=== PATIENT | male | born 1965 | race Caucasian/White ===

== ENCOUNTER 2017-02-22 12:02 | Emergency (ER) | payer OTHER ==
[~2017-02-22] VITALS: Ht 180.3 cm; Wt 90.7 kg
[~2017-02-22 12:02] MED LIST: NORCO 5-325 TA1 EACH PO; PREVACID30 MG PO
--- OUTSIDE RECORDS SUMMARY | 2017-02-22 12:09 | XMS | Clinical Summary ---
Demographics + + + | Address | [address] | | | [place] [address] | + + + | Home Phone | | + + + | Preferred Language | Unknown | + + + | Marital Status | Single | + + + | Scientology Affiliation | Unknown | + + + | Race | Unknown | + + + | Ethnic Group | Other Race | + + + Author + + + | Author | [facility] | + + + | Organization | [facility] | + + + | Address | Unknown | + + + | Phone | Unavailable | + + + Care Team Providers + +------+-------+ | Care Research Manager Name | Role | Phone | + +------+-------+ | [facility] [facility] | PP | tel | + +------+-------+ Source Comments EDILIA is fully live on both [facility] and [facility].Formerly [facility] Allergies No Known Allergies Current Medications No known medications Active Problems + + + | Problem | Noted Date | + + + | Malignant neoplasm of skin | | + + + + + | Overview: ICD10 | + + Social History + + + +--------+------+ | Tobacco Use | Types | Packs/Day | Years | Date | | | | | Used | | + + + +--------+------+ | Current Every Day | Cigarettes | 0.5 | | | | Smoker | | | | | + + + +--------+------+ + + + | Sex Assigned at | Date Recorded | | | | + + + | Not on file | | + + + Last Filed Vital Signs + +---------+ + | Vital Sign | Reading | Time Taken | + +---------+ + | Blood Pressure | 100/80 | 10/09/2008 8:27 AM PDT | + +---------+ + | Pulse | 57 | 10/09/2008 8:27 AM PDT | + +---------+ + | Temperature | - | - | + +---------+ + | Respiratory Rate | 18 | 10/09/2008 8:27 AM PDT | + +---------+ + | Oxygen Saturation | - | - | + +---------+ + | Inhaled Oxygen | - | - | | Concentration | | | + +---------+ + | Weight | - | - | + +---------+ + | Height | - | - | + +---------+ + | Body Mass Index | - | - | + +---------+ + Plan of Treatment + + + + + | Health Maintenance | Due Date | Last Done | Comments | + + + + + | INFLUENZA VACCINE | | | | | (FLU SHOT) | 7 | | | + + + + + Results Not on filefrom Last 3 Months"
[2017-02-22] MEDS ORDERED: OMEPRAZOLE20 M1 PO (12:17)
[2017-02-22] MEDS ORDERED: ONDANSETRON ODT8 MG PO (14:31)
--- NOTE | 2017-02-22 19:17 | EKG ---
[facility] [address] [facility] [place] [address] Signed Normal sinus rhythm Nonspecific T wave abnormality Abnormal ECG No previous ECGs available Confirmed by KALYANI GODDARD MD ([id number]) on 02/22/2017 7:17:47 PM Electronically Signed By: KALYANI GODDARD MD 02/22/171916 PATIENT NAME: ANDREIA ALMANZAR Electrocardiogram DATE OF : 63 PHYSICIAN: KALYANI GODDARD MD REPORT #: [id number] REPORT IS CONFIDENTIAL AND NOT TO BE RELEASED WITHOUT AUTHORIZATION
== END 2017-02-22 14:40 | disposition home or self-care (01) ==
LOC: ED 12:02
DX: R10.9 Unspecified abdominal pain (principal); R10.817 Generalized abdominal tenderness; K21.9 Gastro-esophageal reflux disease without esophagitis; F17.200 Nicotine dependence, unspecified, uncomplicated; Z79.899 Other long term (current) drug therapy
CPT/HCPCS: 80053; 81001; 82150; 83690; 84484; 85025; 93005; 93010; 96361; 96374; 96375; 96376; 99283; J1170; J2405; J7030

== ENCOUNTER 2017-07-18 12:01 | Emergency (ER) | payer OTHER ==
[~2017-07-18] VITALS: Ht 180.3 cm; Wt 90.7 kg
[~2017-07-18 12:01] MED LIST changes: +OMEPRAZOLE20 M1 PO; +ONDANSETRON ODT8 MG PO
[2017-07-18] MEDS ORDERED: NAPHCON-A EYE D15 ML OPTH (13:45)
== END 2017-07-18 13:56 | disposition home or self-care (01) ==
LOC: ED 12:01
DX: H10.13 Acute atopic conjunctivitis, bilateral (principal); F17.200 Nicotine dependence, unspecified, uncomplicated; K21.9 Gastro-esophageal reflux disease without esophagitis; Z79.899 Other long term (current) drug therapy
CPT/HCPCS: 99283

== ENCOUNTER 2018-04-07 13:31 | Emergency (ER) | payer OTHER ==
[~2018-04-07] VITALS: Ht 180.3 cm; Wt 90.7 kg
[~2018-04-07 13:31] MED LIST changes: +NAPHCON-A EYE D15 ML OPTH
== END 2018-04-07 16:00 | disposition home or self-care (01) ==
LOC: ED 13:31
DX: I87.8 Other specified disorders of veins (principal); K21.9 Gastro-esophageal reflux disease without esophagitis; F17.200 Nicotine dependence, unspecified, uncomplicated
CPT/HCPCS: 71045; 80053; 81001; 83880; 85025; 99283-25

== ENCOUNTER 2019-02-09 18:50 | Emergency (ER) | payer OTHER ==
[~2019-02-09] VITALS: Ht 180.3 cm; Wt 90.7 kg
--- OUTSIDE RECORDS SUMMARY | ~2019-02-09 | XMS | Encounter Summary ---
Demographics + + + | Address | [address] | | | [place] [address] | + + + | Home Phone | | + + + | Preferred Language | Unknown | + + + | Marital Status | Single | + + + | Mormonism Affiliation | Unknown | + + + | Race | Unknown | + + + | Ethnic Group | Unknown | + + + Author + + + | Author | [facility] | | | and [place] | + + + | Organization | [facility] | | | and [place] | + + + | Address | Unknown | + + + | Phone | Unavailable | + + + Support + + +---------+ + | Name | Relationship | Address | Phone | + + +---------+ + | Andrew [place] | ECON | Unknown | | + + +---------+ + Care Team Providers + +------+ + | Care Dance Professor Name | Role | Phone | + +------+ + PCP | Unavailable | + +------+ + Encounter Details +--------+ + + + + | Date | Type | Department | Care Team | Description | +--------+ + + + + | 09/10/ | Hospital | [facility] | [facility] | | | 2016 | Encounter | [facility] | [address] | | | | | [address] | [address] | | | | | [address] [place] | [place] [address] | | | | | [address] | [phone] | | | | | [phone] | | | +--------+ + + + + Social History + +-------+ +--------+------+ | Tobacco Use | Types | Packs/Day | Years | Date | | | | | Used | | + +-------+ +--------+------+ | Never Assessed | | | | | + +-------+ +--------+------+ + + + | Sex Assigned at | Date Recorded | | | | + + + | Not on file | | + + + + + + + | Job Start Date | Occupation | Industry | + + + + | Not on file | Not on file | Not on file | + + + + + + + + | Travel History | Travel Start | Travel End | + + + + + + | No recent travel history available. | + + documented as of this encounter Plan of Treatment Not on filedocumented as of this encounter Procedures + +--------+ + + + | Procedure Name | Priori | Date/Time | Associated Diagnosis | Comments | | | ty | | | | + +--------+ + + + | DRUGS OF ABUSE, | STAT | 09/11/2015 | | Results for this | | SCREEN, URINE | | 9:03 PM | | procedure are in the | | | | PDT | | results section. | + +--------+ + + + | BLOOD GAS, VENOUS | STAT | 09/11/2015 | | Results for this | | | | 7:27 PM | | procedure are in the | | | | PDT | | results section. | + +--------+ + + + | URINALYSIS WITH | STAT | 09/11/2015 | | Results for this | | MICROSCOPIC WITH | | 7:27 PM | | procedure are in the | | CULTURE IF INDICATED | | PDT | | results section. | + +--------+ + + + | CBC W/AUTO | STAT | 09/11/2015 | | Results for this | | DIFFERENTIAL | | 7:27 PM | | procedure are in the | | | | PDT | | results section. | + +--------+ + + + | TROPONIN I | STAT | 09/11/2015 | | Results for this | | | | 7:27 PM | | procedure are in the | | | | PDT | | results section. | + +--------+ + + + | LIPASE | STAT | 09/11/2015 | | Results for this | | | | 7:27 PM | | procedure are in the | | | | PDT | | results section. | + +--------+ + + + | COMPREHENSIVE | STAT | 09/11/2015 | | Results for this | | METABOLIC PANEL | | 7:27 PM | | procedure are in the | | | | PDT | | results section. | + +--------+ + + + | CT ABDOMEN PELVIS W | Routin | 09/11/2015 | | Results for this | | CONTRAST | e | 6:59 PM | | procedure are in the | | | | PDT | | results section. | + +--------+ + + + documented in this encounter Results Drugs of Abuse, Screen, Urine (09/11/2015 9:03 PM PDT) + +-------+ + + + | Component | Value | Ref Range | Performed | Pathologist | | | | | At | Signature | + +-------+ + + + | THC RESULT | POS | NEG ng/mL | EXTERNAL | | | | | | LAB | | + +-------+ + + + | Phencyclidi | NEG | NEG ng/mL | EXTERNAL | | | ne | | | LAB | | + +-------+ + + + | Cocaine | NEG | NEG ng/mL | EXTERNAL | | | | | | LAB | | + +-------+ + + + | Methampheta | POS | NEG ng/mL | EXTERNAL | | | mine | | | LAB | | + +-------+ + + + | Opiates | NEG | NEG ng/mL | EXTERNAL | | | | | | LAB | | + +-------+ + + + | Amphetamine | POS | NEG ng/mL | EXTERNAL | | | s | | | LAB | | + +-------+ + + + | Benzodiazep | NEG | NEG ng/mL | EXTERNAL | | | penny | | | LAB | | | Screen, | | | | | | Urine | | | | | + +-------+ + + + | TCA Scrn | NEG | NEG ng/mL | EXTERNAL | | | | | | LAB | | + +-------+ + + + | Methadone | NEG | NEG ng/mL | EXTERNAL | | | Screen, | | | LAB | | | Urine | | | | | + +-------+ + + + | Barbiturate | NEG | NEG ng/mL | EXTERNAL | | | s | | | LAB | | + +-------+ + + + | Oxycodone | NEG | NEG ng/mL | EXTERNAL | | | | | | LAB | | + +-------+ + + + | Propoxyphen | NEG | NEG ng/mL | EXTERNAL | | | e | | | LAB | | + +-------+ + + + | Buprenorphi | NEG | NEG ng/mL | EXTERNAL | | | ne | | | LAB | | + +-------+ + + + + + | Specimen | + + | | + + + +---------+ + + | Performing | Address | City/State/Zipcode | Phone Number | | Organization | | | | + +---------+ + + | EXTERNAL LAB | | | | + +---------+ + + Urinalysis with Microscopic with Culture if Indicated (09/11/2015 7:27 PM PDT) + + + + + + | Component | Value | Ref Range | Performed | Pathologist | | | | | At | Signature | + + + + + + | Source | Clean Catch / VOID | | EXTERNAL | | | | | | LAB | | + + + + + + | Clarity | CLEAR | CLEAR | EXTERNAL | | | | | | LAB | | + + + + + + | Color | YELLOW | YELLOW | EXTERNAL | | | | | | LAB | | + + + + + + | Specific | 1.015 | 1.005 - 1.030 | EXTERNAL | | | [place], | | | LAB | | | Urine | | | | | + + + + + + | pH, Urine | 8 | 5.0 - 7.0 pH | EXTERNAL | | | | | | LAB | | + + + + + + | Leukocyte | NEGATIVE | NEGATIVE /uL | EXTERNAL | | | Esterase, | | | LAB | | | Urine | | | | | + + + + + + | Nitrite, | NEGATIVE | NEGATIVE | EXTERNAL | | | Urine | | | LAB | | + + + + + + | Protein, | NEGATIVE | NEGATIVE mg/dL | EXTERNAL | | | Urine | | | LAB | | + + + + + + | Glucose, | NORMAL | NORMAL mg/dL | EXTERNAL | | | Urine | | | LAB | | + + + + + + | Reducing | NOT REQUIRED | NEGATIVE | EXTERNAL | | | Substance, | | | LAB | | | UA, POC | | | | | + + + + + + | Ketones, | 150 | NEGATIVE mg/dL | EXTERNAL | | | Urine | | | LAB | | + + + + + + | Urobilinoge | NORMAL | NORMAL mg/dL | EXTERNAL | | | n, Urine | | | LAB | | + + + + + + | Bilirubin, | NEGATIVE | NEGATIVE mg/dL | EXTERNAL | | | Urine | | | LAB | | + + + + + + | Blood, | NEGATIVE | NEGATIVE /uL | EXTERNAL | | | Urine | | | LAB | | + + + + + + | WBC UA | 0-2 | </= 5 /HPF | EXTERNAL | | | | | | LAB | | + + + + + + | RBC COUNT | NONE SEEN | </= 5 PER HPF | EXTERNAL | | | | | | LAB | | + + + + + + | Bacteria, | NONE SEEN | NONE SEEN /HPF | EXTERNAL | | | UA | | | LAB | | + + + + + + | Culture | NO | | EXTERNAL | | | Indicated | | | LAB | | + + + + + + | SQUAMOUS | RARE | /LPF | EXTERNAL | | | EPITHELIAL | | | LAB | | | UA | | | | | + + + + + + | MUCUS UA | FEW | NONE SEEN /HPF | EXTERNAL | | | | | | LAB | | + + + + + + + + | Specimen | + + | | + + + +---------+ + + | Performing | Address | City/State/Zipcode | Phone Number | | Organization | | | | + +---------+ + + | EXTERNAL LAB | | | | + +---------+ + + Troponin I (09/11/2015 7:27 PM PDT) + +-------+ + + + | Component | Value | Ref Range | Performed | Pathologist | | | | | At | Signature | + +-------+ + + + | Troponin I | 0.01 | <=0.10 ng/mL | EXTERNAL | | | | | | LAB | | + +-------+ + + + + + | Specimen | + + | | + + + +---------+ + + | Performing | Address | City/State/Zipcode | Phone Number | | Organization | | | | + +---------+ + + | EXTERNAL LAB | | | | + +---------+ + + Lipase (09/11/2015 7:27 PM PDT) + +-------+ + + + | Component | Value | Ref Range | Performed | Pathologist | | | | | At | Signature | + +-------+ + + + | Lipase | 108 | 73 - 393 U/L | EXTERNAL | | | | | | LAB | | + +-------+ + + + + + | Specimen | + + | | + + + +---------+ + + | Performing | Address | City/State/Zipcode | Phone Number | | Organization | | | | + +---------+ + + | EXTERNAL LAB | | | | + +---------+ + + Comprehensive Metabolic Panel (09/11/2015 7:27 PM PDT) + +-------+ + + + | Component | Value | Ref Range | Performed | Pathologist | | | | | At | Signature | + +-------+ + + + | Sodium | 137 | 132 - 143 | EXTERNAL | | | | | mmol/L | LAB | | + +-------+ + + + | Potassium | 3.4 | 3.3 - 4.9 | EXTERNAL | | | | | mmol/L | LAB | | + +-------+ + + + | Cl | 102 | 95 - 108 mmol/L | EXTERNAL | | | | | | LAB | | + +-------+ + + + | CO2 | 26 | 23 - 34 mmol/L | EXTERNAL | | | | | | LAB | | + +-------+ + + + | Anion Gap | 9 | 7 - 16 | EXTERNAL | | | | | | LAB | | + +-------+ + + + | Calcium | 8.8 | 8.3 - 10.0 | EXTERNAL | | | | | mg/dL | LAB | | + +-------+ + + + | Glucose | 107 | 70 - 110 mg/dL | EXTERNAL | | | | | | LAB | | + +-------+ + + + | BUN, Bld | 14 | 5 - 26 mg/dL | EXTERNAL | | | | | | LAB | | + +-------+ + + + | Creatinine | 1 | 0.70 - 1.40 | EXTERNAL | | | | | mg/dL | LAB | | + +-------+ + + + | BUN/Creatin | 14 | 7.0 - 24.0 | EXTERNAL | | | ine Ratio | | RATIO | LAB | | + +-------+ + + + | GFR | 60 | >=60 | EXTERNAL | | | ESTIMATE | | mL/min/1.73m2 | LAB | | + +-------+ + + + | Bilirubin, | 0.8 | <=1.2 mg/dL | EXTERNAL | | | Total | | | LAB | | + +-------+ + + + | Protein, | 7.4 | 6.6 - 8.5 g/dL | EXTERNAL | | | Total | | | LAB | | + +-------+ + + + | Albumin | 3.8 | 3.0 - 4.5 g/dL | EXTERNAL | | | | | | LAB | | + +-------+ + + + | Alkaline | 79 | 46 - 116 U/L | EXTERNAL | | | Phosphatase | | | LAB | | + +-------+ + + + | ALT, | 41 | 16 - 63 U/L | EXTERNAL | | | External | | | LAB | | + +-------+ + + + | AST, | 41 | <=38 U/L | EXTERNAL | | | External | | | LAB | | + +-------+ + + + + + | Specimen | + + | | + + + +---------+ + + | Performing | Address | City/State/Zipcode | Phone Number | | Organization | | | | + +---------+ + + | EXTERNAL LAB | | | | + +---------+ + + CBC w/ Auto Differential (09/11/2015 7:27 PM PDT) + +-------+ + + + | Component | Value | Ref Range | Performed | Pathologist | | | | | At | Signature | + +-------+ + + + | WBC | 11 | 4.6 - 10.5 | EXTERNAL | | | | | 1000/mm3 | LAB | | + +-------+ + + + | RBC | 4.49 | 4.36 - 5.83 | EXTERNAL | | | | | mil/mm3 | LAB | | + +-------+ + + + | HGB, | 14.4 | 13.1 - 17.4 | EXTERNAL | | | External | | g/dL | LAB | | + +-------+ + + + | HCT, | 41.7 | 39.0 - 51.9 % | EXTERNAL | | | External | | | LAB | | + +-------+ + + + | MCV | 93 | 82 - 96 fl | EXTERNAL | | | | | | LAB | | + +-------+ + + + | MCH | 32.1 | 27.7 - 32.3 pg | EXTERNAL | | | | | | LAB | | + +-------+ + + + | MCHC | 34.5 | 32.0 - 36.9 | EXTERNAL | | | | | g/dL | LAB | | + +-------+ + + + | RDW-CV | 13.6 | <=17.0 % | EXTERNAL | | | | | | LAB | | + +-------+ + + + | RDW-SD | 45.1 | 34.0 - 57.0 fL | EXTERNAL | | | | | | LAB | | + +-------+ + + + | Platelet | 384 | 150 - 450 | EXTERNAL | | | Count | | 1000/mm3 | LAB | | | Plasma | | | | | + +-------+ + + + | MPV | 9.3 | 9.4 - 12.4 FL | EXTERNAL | | | | | | LAB | | + +-------+ + + + | % Segmented | 75.5 | 42.0 - 76.0 % | EXTERNAL | | | | | | LAB | | | Neutrophils | | | | | + +-------+ + + + | % | 15.1 | 20.0 - 40.0 % | EXTERNAL | | | Lymphocytes | | | LAB | | + +-------+ + + + | % Monocytes | 8.2 | 3.0 - 13.0 % | EXTERNAL | | | | | | LAB | | + +-------+ + + + | % | 1 | 0.0 - 7.0 % | EXTERNAL | | | Eosinophils | | | LAB | | + +-------+ + + + | % Basophils | 0.2 | 0.0 - 2.0 % | EXTERNAL | | | | | | LAB | | + +-------+ + + + | Absolute | 8.31 | 2.80 - 7.70 | EXTERNAL | | | Neutrophils | | 1000/mm3 | LAB | | + +-------+ + + + | Absolute | 1.66 | 1.20 - 3.30 | EXTERNAL | | | Lymphocytes | | 1000/mm3 | LAB | | + +-------+ + + + | Absolute | 0.9 | 0.00 - 0.80 | EXTERNAL | | | Monocytes | | 1000/mm3 | LAB | | + +-------+ + + + | Absolute | 0.11 | 0.00 - 0.70 | EXTERNAL | | | Eosinophils | | 1000/mm3 | LAB | | + +-------+ + + + | Absolute | 0.02 | 0.00 - 0.20 | EXTERNAL | | | Basophils | | 1000/mm3 | LAB | | + +-------+ + + + | SLIDE | NO | | EXTERNAL | | | REVIEWED | | | LAB | | + +-------+ + + + + + | Specimen | + + | | + + + +---------+ + + | Performing | Address | City/State/Zipcode | Phone Number | | Organization | | | | + +---------+ + + | EXTERNAL LAB | | | | + +---------+ + + Blood Gas, Venous (09/11/2015 7:27 PM PDT) + +-------+ + + + | Component | Value | Ref Range | Performed | Pathologist | | | | | At | Signature | + +-------+ + + + | pH | 7.52 | 7.35 - 7.45 PH | EXTERNAL | | | | | UNITS | LAB | | + +-------+ + + + | PCO2, | 33 | 41 - 54 mmHG | EXTERNAL | | | Venous, POC | | | LAB | | + +-------+ + + + | HCO3 | 27 | 17 - 28 mmol/L | EXTERNAL | | | | | | LAB | | + +-------+ + + + + + | Specimen | + + | | + + + +---------+ + + | Performing | Address | City/State/Zipcode | Phone Number | | Organization | | | | + +---------+ + + | EXTERNAL LAB | | | | + +---------+ + + CT Abdomen Pelvis w Contrast (09/11/2015 6:59 PM PDT) + + | Specimen | + + | | + + + + + | Narrative | Performed At | + + + | ORIGINAL CT ABDOMEN AND PELVIS WITH CONTRAST: | | | CLINICAL STATEMENT: Severe pain with nausea and vomiting. No | | | comparison. TECHNIQUE: Axial images are obtained through the | | | abdomen and pelvis following uneventful administration of intravenous | | | contrast. DLP is 813.57 mGy-cm. REPORT: Small volume | | | intraabdominal free air is present. Ascites is demonstrated as well. | | | Findings suspicious for defect in the pylorus region of the stomach | | | is noted. Hyperenhancement at the mucosal surface pylorus region as | | | well as proximal duodenum is evident. The liver, gallbladder, | | | adrenal glands, spleen, and right kidney appear within normal limits. | | | At the left kidney hypoattenuating 4 mm lesion is noted at the upper | | | pole, too small to characterize but most typically associated with | | | cyst. Similar finding is noted at the mid-cortex medially on image | | | 119. Atherosclerosis abdominal aorta is present without aneurysm. | | | The pancreas appears within normal limits. No dilated bowel | | | loops are seen. The visualized bony structures demonstrate disk | | | degenerative changes at several lumbar levels with narrowing and | | | endplate spurring. Findings are most prominent at L5-S1. No lytic | | | or blastic bone lesions are seen. The lung bases demonstrate no | | | focal infiltrate. Heart size is normal. IMPRESSION: Free air, | | | free fluid within abdomen. Suspicious finding for gastric | | | perforation noted near the pylorus. The study is preliminarily | | | evaluated by an overnight reading service. JOB #: | | | [id number] Read By: JENARO HINES MD Released By: JENARO HINES MD Date: 09/12/2015 18:00 | | + + + + + | Procedure Note | + + | Rojelio, Rad Results In - 01/04/2017 11:[address] PM [address] ABDOMEN AND PELVIS | | WITH CONTRAST: CLINICAL STATEMENT:Severe pain with nausea and vomiting. No comparison. | | TECHNIQUE:Axial images are obtained through the abdomen and pelvis following uneventful | | administration of intravenous contrast. DLP is 813.57 mGy-cm. REPORT:Small volume | | intraabdominal free air is present. Ascites is demonstrated as well. Findings | | suspicious for defect in the pylorus region of the stomach is noted. Hyperenhancement | | at the mucosal surface pylorus region as well as proximal duodenum is evident. The | | liver, gallbladder, adrenal glands, spleen, and right kidney appear within normal | | limits. At the left kidney hypoattenuating 4 mm lesion is noted at the upper pole, too | | small to characterize but most typically associated with cyst. Similar finding is noted | | at the mid-cortex medially on image 119. Atherosclerosis abdominal aorta is present | | without aneurysm. The pancreas appears within normal limits. No dilated bowel loops are | | seen. The visualized bony structures demonstrate disk degenerative changes at several | | lumbar levels with narrowing and endplate spurring. Findings are most prominent at | | L5-S1. No lytic or blastic bone lesions are seen. The lung bases demonstrate no focal | | infiltrate. Heart size is normal. IMPRESSION:Free air, free fluid within abdomen. | | Suspicious finding for gastric perforation noted near the pylorus. The study is | | preliminarily evaluated by an overnight reading service. JOB #: [id number] | | Read By: JENARO HINES MD Released By: JENARO HINES, MDDate: 09/12/2015 18:00 | |evident. | | | |The liver, gallbladder, adrenal glands, spleen, and right kidney appear within normal limit s. At the left kidney hypoattenuating 4 mm lesion is noted at the upper pole, too small to characterize but most typically | |associated with cyst. Similar finding | |is noted at the mid-cortex medially on image 119. | | | |Atherosclerosis abdominal aorta is present without aneurysm. | | | |The pancreas appears within normal limits. | | | |No dilated bowel loops are seen. The visualized bony structures demonstrate disk degenerat abraham changes at several lumbar levels with narrowing and endplate spurring. Findings are mos t prominent at L5-S1. No lytic or blastic bone lesions are seen. | | | |The lung bases demonstrate no focal infiltrate. Heart size is normal. | | | |IMPRESSION: | |Free air, free fluid within abdomen. Suspicious finding for gastric perforation noted near the pylorus. The study is preliminarily evaluated by an overnight reading service. | | | | | |JOB #: [id number] | | | |Read By: JENARO HINES MD | | | |Released By: JENARO HINES MD | |Date: 09/12/2015 18:00 | | | | | + + documented in this encounter Visit Diagnoses Not on filedocumented in this encounter"
--- OUTSIDE RECORDS SUMMARY | ~2019-02-09 | XMS | Clinical Summary ---
Demographics + + + | Address | [address] | | | [place] [address] | + + + | Home Phone | | + + + | Preferred Language | Unknown | + + + | Marital Status | Single | + + + | Nondenominational Affiliation | Unknown | + + + | Race | Unknown | + + + | Ethnic Group | Unknown | + + + Author + + + | Author | [facility] | | | and [place] | + + + | Organization | [facility] | | | and [place] [...] Team Providers + +------+ + | Care Crew Leader Name | Role | Phone | + +------+ + | Elbert Ramires DO | PCP | | + +------+ + Allergies Not on File Medications Not on file Active Problems Not on file Social History + +-------+ +--------+------+ | Tobacco [...] recent travel history available. | + + Last Filed Vital Signs + + + + + | Vital Sign | Reading | Time Taken | Comments | + + + + + | Blood Pressure | 118/56 | 01/01/2016 1:51 PM | | | | | PDT | | + + + + + | Pulse | 76 | 01/01/2016 1:51 PM | | | | | PDT | | + + + + + | Temperature | - | - | | + + + + + | Respiratory Rate | 16 | 01/01/2016 1:51 PM | | | | | PDT | | + + + + + | Oxygen Saturation | 97% | 01/01/2016 1:51 PM | | | | | PDT | | + + + + + | Inhaled Oxygen | - | - | | | Concentration | | | | + + + + + | Weight | 83.1 kg (183 lb 3.3 | 01/01/2016 1:51 PM | | | | oz) | PDT | | + + + + + | Height | 180.3 cm (5' 10.98") | 01/01/2016 1:51 PM | | | | | PDT | | + + + + + | Body Mass Index | 25.57 | 01/01/2016 1:51 PM | | | | | PDT | | + + + + + Plan of Treatment + + + + + | Health Maintenance | Due Date | Last Done | Comments | + + + + + | Primary Care | | | | | Outreach (Low Risk) | 4 | | | + + + + + | Vaccine: | | | | | Dtap/Tdap/Td (1 - | 3 | | | | Tdap) | | | | + + + + + | Vaccine: Zoster (1 | | | | | of 2) | 4 | | | + + + + + | Vaccine: Influenza | | | | | (#1) | 9 | | | + + + + + Results Not on filefrom Last 3 Months
--- OUTSIDE RECORDS SUMMARY | ~2019-02-09 | XMS | Encounter Summary ---
Demographics + + + | Address | [address] | | | [place] [address] | + + + | Home Phone | | + + + | Preferred Language | Unknown | + + + | Marital Status | Single | + + + | Jewish Affiliation | Unknown | + + + | Race | Unknown | + + + | Ethnic Group | Unknown | + + + Author + + + | Author | [facility] | | | and [place] | + + + | Organization | [facility] | | | and [place] [...] Team Providers + +------+ + | Care Editor Continuity And Script Name | Role | Phone | + +------+ + PCP | Unavailable | + +------+ + Encounter Details +--------+ + + + + | Date | Type | Department | Care Team | Description | +--------+ + + + + | 12/31/ | [facility] | [facility] | [place], [place] | | | 2016 | Encounter | [facility] | [address] | | | | | [facility] [address] | [address] [facility], | | | | | [address] [facility], | [place] [address] | | | | | [place] [address] | [phone] | | | | | [phone] | | | +--------+ + + + [...] Not on filedocumented as of this encounter Visit Diagnoses Not on filedocumented in this encounter"
--- OUTSIDE RECORDS SUMMARY | ~2019-02-09 | XMS | Encounter Summary ---
Demographics + + + | Address | [address] | | | [place] [address] | + + + | Home Phone | | + + + | Preferred Language | Unknown | + + + | Marital Status | Single | + + + | Roman Catholic Affiliation | Unknown | + + + | Race | Unknown | + + + | Ethnic Group | Unknown | + + + Author + + + | Author | [facility] | | | and [place] | + + + | Organization | [facility] | | | and [place] | [...] Team Providers + +------+ + | Care Food Processing Chemist Name | Role | Phone | + +------+ + PCP | Unavailable | + +------+ + Encounter Details +--------+ + + + + | Date | Type | Department | Care Team | Description | +--------+ + + + + | 07/28/ | Hospital | [facility] | Tyshawn Acharya | | | 2008 | Encounter | HOSPITAL BUSINESS | MD [address] | | | | | OFFICE [address] | [address] | | | | | [place] | [place] [address] | | | | | [address] | [phone] | | | | | [phone] | | | +--------+ + + + [...]
--- OUTSIDE RECORDS SUMMARY | ~2019-02-09 | XMS | Clinical Summary ---
Demographics + + + | Address | [address] | | | [place] [address] | + + + | Home Phone | | + + + | Preferred Language | Unknown | + + + | Marital Status | Single | + + + | Adventist Affiliation | Unknown | + + + | Race | Unknown | + + + | Ethnic Group | Unknown | + + + Author + + + | Author | [facility] | | | and [place] | + + + | Organization | [facility] | | | and [place] [...] Team Providers + +------+ + | Care Bed Laborer Name | Role | Phone | + [...]
--- OUTSIDE RECORDS SUMMARY | ~2019-02-09 | XMS | Encounter Summary ---
Demographics + + + | Address | [address] | | | [place] [address] | + + + | Home Phone | | + + + | Preferred Language | Unknown | + + + | Marital Status | Single | + + + | Yarsani Affiliation | Unknown | + + + | Race | Unknown | + + + | Ethnic Group | Unknown | + + + Author + + + | Author | [facility] | | | and [place] | + + + | Organization | [facility] | | | and [place] [...] Team Providers + +------+ + | Care Customer Success Director Name | Role | Phone | + +------+ + PCP | Unavailable | + +------+ + Encounter Details +--------+ + + + + | Date | Type | Department | Care Team | Description | +--------+ + + + + | 09/10/ | Hospital | [facility] | [place], | | | 2016 | Encounter | HOSPITAL MED SURG | Nomi Hagan, | | | | | [address] | [address] | | | | | [place] | [place] | | | | | [address] | [address] | | | | | [phone] | [phone] | | | | | | | | +--------+ + + + [...] + + documented as of this encounter Discharge Summaries Nomi Win MD - 09/11/2015 10:06 PM PDT DISCHARGE SUMMARY DATE OF ADMISSION: 09/11/2015. DATE OF DISCHARGE: 09/17/2015. HISTORY OF PRESENT ILLNESS: This is a 50-year-old male who began having epigastric discomfort that suddenly became more severe on the day of admission. He was admitted with presumed perforated peptic ulcer. He was taken to the operating room where a fairly straightforward anterior gastric perforation was noted and patched by omentopexy. Postoperative course was unremark able. We kept an NG tube for about 2-3 days and then started on a diet and advanced. His h istory was significant for active methamphetamine use, MARIJUANA use and tobacco use. Counseling was given by myself regarding these issues and an arrangement was made for him to stay with his parents during his postoperative recovery at home. DISCHARGE PLAN: Follow up with me in 1-2 weeks. He is given NORCO script for pain. Started on OMEPRAZOLE, BIAXIN and AMOXICILLIN for H. pylori positivity. He is to avoid any heavy lifting. DISCHARGE DIAGNOSES: 1. Perforated gastric ulcer. 2. H. pylori positive. 3. Methamphetamine abuse. 4. Tobacco abuse. 5. MARIJUANA abuse. CC: Carlitos Delvalle MD [facility] Signed and Approved by: NOMI WIN MD 09/21/2015 09:51:00 documented in this encounter Plan of Treatment Not on filedocumented as of this encounter Procedures + +--------+ + + + | Procedure Name | Priori | Date/Time | Associated Diagnosis | Comments | | | ty | | | | + +--------+ + + + | HELICOBACTER PYLORI | Routin | 09/11/2015 | | Results for this | | BIOPSY | e | 11:10 PM | | procedure are in the | | | | PDT | | results section. | + +--------+ + + + | CBC W/AUTO | Routin | 09/11/2015 | | Results for this | | DIFFERENTIAL | e | 5:00 AM | | procedure are in the | | | | PDT | | results section. | + +--------+ + + + | BASIC METABOLIC | Routin | 09/11/2015 | | Results for this | | PANEL | e | 5:00 AM | | procedure are in the | | | | PDT | | results section. | + +--------+ + + + documented in this encounter Results Helicobactor pylori Biopsy (09/11/2015 11:10 PM PDT) + + + + + + | Component | Value | Ref Range | Performed | Pathologist | | | | | At | Signature | + + + + + + | CLOTEST | POSITIVE | NEGATIVE | EXTERNAL | | | | | | LAB | | + + + + + + | Internal QC | POSITIVE | POSITIVE | EXTERNAL | | | | | [...] + + CBC w/ Auto Differential (09/11/2015 5:00 AM PDT) + +-------+ + + + | Component | Value | Ref Range | Performed | Pathologist | | | | | At | Signature | + +-------+ + + + | WBC | 8.3 | 4.6 - 10.5 | EXTERNAL | | | | | 1000/mm3 | LAB | | + +-------+ + + + | RBC | 4.06 | 4.36 - 5.83 | EXTERNAL | | | | | mil/mm3 | LAB | | + +-------+ + + + | HGB, | 12.6 | 13.1 - 17.4 | EXTERNAL | | | External | | g/dL | LAB | | + +-------+ + + + | HCT, | 37.6 | 39.0 - 51.9 % | EXTERNAL | | | External | | | LAB | | + +-------+ + + + | MCV | 93 | 82 - 96 fl | EXTERNAL | | | | | | LAB | | + +-------+ + + + | MCH | 31 | 27.7 - 32.3 pg | EXTERNAL | | | | | | LAB | | + +-------+ + + + | MCHC | 33.5 | 32.0 - 36.9 | EXTERNAL | | | | | g/dL | LAB | | + +-------+ + + + | RDW-CV | 13.4 | <=17.0 % | EXTERNAL | | | | | | LAB | | + +-------+ + + + | RDW-SD | 44.4 | 34.0 - 57.0 fL | EXTERNAL | | | | | | LAB | | + +-------+ + + + | Platelet | 390 | 150 - 450 | EXTERNAL | | | Count | | 1000/mm3 | LAB | | | Plasma | | | | | + +-------+ + + + | MPV | 9.9 | 9.4 - 12.4 FL | EXTERNAL | | | | | | LAB | | + +-------+ + + + | % Segmented | 63.6 | 42.0 - 76.0 % | EXTERNAL | | | | | | LAB | | | Neutrophils | | | | | + +-------+ + + + | % | 17 | 20.0 - 40.0 % | EXTERNAL | | | Lymphocytes | | | LAB | | + +-------+ + + + | % Monocytes | 12.4 | 3.0 - 13.0 % | EXTERNAL | | | | | | LAB | | + +-------+ + + + | % | 6.8 | 0.0 - 7.0 % | EXTERNAL | | | Eosinophils | | | LAB | | + +-------+ + + + | % Basophils | 0.2 | 0.0 - 2.0 % | EXTERNAL | | | | | | LAB | | + +-------+ + + + | Absolute | 5.26 | 2.80 - 7.70 | EXTERNAL | | | Neutrophils | | 1000/mm3 | LAB | | + +-------+ + + + | Absolute | 1.41 | 1.20 - 3.30 | EXTERNAL | | | Lymphocytes | | 1000/mm3 | LAB | | + +-------+ + + + | Absolute | 1.03 | 0.00 - 0.80 | EXTERNAL | | | Monocytes | | 1000/mm3 | LAB | | + +-------+ + + + | Absolute | 0.56 | 0.00 - 0.70 | EXTERNAL | [...] | | | + +---------+ + + Basic Metabolic Panel (09/11/2015 5:00 AM PDT) + +-------+ + + + | Component | Value | Ref Range | Performed | Pathologist | | | | | At | Signature | + +-------+ + + + | Sodium | 140 | 132 - 143 | EXTERNAL | | | | | mmol/L | LAB | | + +-------+ + + + | Potassium | 3.3 | 3.3 - 4.9 | EXTERNAL | | | | | mmol/L | LAB | | + +-------+ + + + | Cl | 108 | 95 - 108 mmol/L | EXTERNAL | | | | | | LAB | | + +-------+ + + + | CO2 | 28 | 23 - 34 mmol/L | EXTERNAL | | | | | | LAB | | + +-------+ + + + | Anion Gap | 4 | 7 - 16 | EXTERNAL | | | | | | LAB | | + +-------+ + + + | Calcium | 7.6 | 8.3 - 10.0 | EXTERNAL | | | | | mg/dL | LAB | | + +-------+ + + + | Glucose | 104 | 70 - 110 mg/dL | EXTERNAL | | | | | | LAB | | + +-------+ + + + | BUN, Bld | 14 | 5 - 26 mg/dL | EXTERNAL | | | | | | LAB | | + +-------+ + + + | Creatinine | 0.85 | 0.70 - 1.40 | EXTERNAL | | | | | mg/dL | LAB | | + +-------+ + + + | BUN/Creatin | 16.5 | 7.0 - 24.0 | EXTERNAL | [...] | | | + +---------+ + + documented in this encounter Visit Diagnoses Not on filedocumented in this encounter"
--- OUTSIDE RECORDS SUMMARY | ~2019-02-09 | XMS | Encounter Summary ---
Demographics + + + | Address | [address] | | | [place] [address] | + + + | Home Phone | | + + + | Preferred Language | Unknown | + + + | Marital Status | Single | + + + | Mandaeism Affiliation | Unknown | + + + | Race | Unknown | + + + | Ethnic Group | Unknown | + + + Author + + + | Author | [facility] | | | and [place] | + + + | Organization | [facility] | | | and [...] Team Providers + +------+ + | Care Stabilizing Machine Operator Name | Role | Phone | + +------+ + PCP | Unavailable | + +------+ + Encounter Details +--------+ + + + + | Date | Type | Department | Care Team | Description | +--------+ + + + + | 12/31/ | [facility] | [facility] | [place], [place] | | | 2016 | Encounter | [facility] | [address] | | | | | [facility] [address] | [facility], | | | | | [facility], | [place] [address] | | | | | [place] [address] | [phone] | | | | | [phone] | | | +--------+ + + + [...]
--- OUTSIDE RECORDS SUMMARY | ~2019-02-09 | XMS | Encounter Summary ---
Demographics + + + | Address | [address] | | | [place] [address] | + + + | Home Phone | | + + + | Preferred Language | Unknown | + + + | Marital Status | Single | + + + | Cheondoism Affiliation | Unknown | + + + | Race | Unknown | + + + | Ethnic Group | Unknown | + + + Author + + + | Author | [facility] | | | and [place] | + + + | Organization | [facility] | | | and [place] [...] Team Providers + +------+ + | Care Campus Recruiting Intern Name | Role | Phone | + [...] | [address] [place] [place] | [place] [address] | | | | | [address] | [phone] | | | | | [phone] | | | +--------+ + + + [...]
--- OUTSIDE RECORDS SUMMARY | ~2019-02-09 | XMS | Encounter Summary ---
Demographics + + + | Address | [address] | | | [place] [address] | + + + | Home Phone | | + + + | Preferred Language | Unknown | + + + | Marital Status | Single | + + + | Baptist Affiliation | Unknown | + + + | Race | Unknown | + + + | Ethnic Group | Unknown | + + + Author + + + | Author | [facility] | | | and [place] | + + + | Organization | [facility] | | | and [place] [...] Team Providers + +------+ + | Care Pin Pusher Name | Role | Phone | + [...] | [address] [place] [place] | [place] [address] | | | | | [address] | [phone] | | | | | [phone] | | | +--------+ + + + [...] - 1.030 | EXTERNAL | | | [facility], | | | LAB | | | [...] reading service. JOB #: | | | [id number] Read By: JENARO HINES MD Released By: [...] by an overnight reading service. JOB #: [id number] | | Read By: JENARO HINES MD [...] | | | | | |JOB #: [id number] | | | |Read By: JENARO HINSE MD | | | |Released By: JENARO HINES MD | |Date: 09/12/2015 18:00 | | | | | + + documented in this encounter Visit Diagnoses Not on filedocumented in this encounter"
--- OUTSIDE RECORDS SUMMARY | ~2019-02-09 | XMS | Encounter Summary ---
Demographics + + + | Address | [address] | | | [place] [address] | + + + | Home Phone | | + + + | Preferred Language | Unknown | + + + | Marital Status | Single | + + + | Bahai Affiliation | Unknown | + + + | Race | Unknown | + + + | Ethnic Group | Unknown | + + + Author + + + | Author | [facility] | | | and [place] | + + + | Organization | [facility] | | | and [...] Team Providers + +------+ + | Care Outpatient Program Coordinator Name | Role | Phone | + +------+ + PCP | Unavailable | + +------+ + Encounter Details +--------+ + + + + | Date | Type | Department | Care Team | Description | +--------+ + + + + | 09/22/ | [facility] | [place], | | | 2016 | Encounter | HOSPITAL GENERAL | Ramakrishna Hagan, | | | | | SURGERY [address] | [address] | | | | | [address], | [place], [place] | | | | | [place] [address] | [address] | | | | | [phone] | [phone] | | | | | | | [...]
--- OUTSIDE RECORDS SUMMARY | ~2019-02-09 | XMS | Encounter Summary ---
Demographics + + + | Address | [address] | | | [place] [address] | + + + | Home Phone | | + + + | Preferred Language | Unknown | + + + | Marital Status | Single | + + + | Jehovah'S Witness Affiliation | Unknown | + + + | Race | Unknown | + + + | Ethnic Group | Unknown | + + + Author + + + | Author | [facility] | | | and [place] | + + + | Organization | [facility] | | | and [...] Team Providers + +------+ + | Care Sheet Metal Worker Name | Role | Phone | + +------+ + PCP | Unavailable | + +------+ + Encounter Details +--------+ + + + + | Date | Type | Department | Care Team | Description | +--------+ + + + + | 09/10/ | Hospital | [facility] | [place], | | | 2016 | Encounter | HOSPITAL MED SURG | Nomi aHgan, | | | | | [address] | [address] | | | | | [place] | [place] | | | | | [address] | [address] | | | | | [phone] | [phone] | | | | | | | [...] 5. MARIJUANA abuse. CC: Carlitos Delvalle MD [facility] Signed and Approved by: NOMI WIN MD [...]
--- OUTSIDE RECORDS SUMMARY | ~2019-02-09 | XMS | Encounter Summary ---
Demographics + + + | Address | [address] | | | [place] [address] | + + + | Home Phone | | + + + | Preferred Language | Unknown | + + + | Marital Status | Single | + + + | Oriental Orthodox Affiliation | Unknown | + + + | Race | Unknown | + + + | Ethnic Group | Unknown | + + + Author + + + | Author | [facility] | | | and [place] | + + + | Organization | [facility] | | | and [place] [...] Team Providers + +------+ + | Care Lump Machine Operator Name | Role | Phone | + +------+ + PCP | Unavailable | + +------+ + Encounter Details +--------+ + + + + | Date | Type | Department | Care Team | Description | +--------+ + + + + | 09/22/ | [facility] | [place], | | | 2016 | Encounter | HOSPITAL GENERAL | Ramakrishna Hagan, | | | | | SURGERY [address] | [address] | | | | | [address], | [place], [place] | | | | | [place] [address] | [address] | | | | | [phone] | [phone] | | | | | | | [...]
[2019-02-09] MEDS ORDERED: NORCO 5-325 TA1 EACH PO (21:23)
[2019-02-09] MEDS ORDERED: CLINDAMYCIN HC300 MG PO (21:23)
== END 2019-02-09 21:33 | disposition home or self-care (01) ==
LOC: ED 18:50
DX: K04.7 Periapical abscess without sinus (principal); F17.200 Nicotine dependence, unspecified, uncomplicated
CPT/HCPCS: 70491; 99283-25; Q9967

== ENCOUNTER 2020-09-01 21:06 | Emergency (ER) | payer OTHER ==
[~2020-09-01] VITALS: Ht 180.3 cm; Wt 90.7 kg
[~2020-09-01 21:06] MED LIST changes: +CLINDAMYCIN HC300 MG PO
[2020-09-01] MEDS ORDERED: CIPRODEX OTIC7.5 ML AD (22:07)
[2020-09-01] MEDS ORDERED: AUGMENTIN 875-1 EACH PO (22:07)
== END 2020-09-01 22:18 | disposition home or self-care (01) ==
LOC: ED 21:06
DX: H66.42 Suppurative otitis media, unspecified, left ear (principal); K21.9 Gastro-esophageal reflux disease without esophagitis; F17.200 Nicotine dependence, unspecified, uncomplicated
CPT/HCPCS: 99282; A9270

== ENCOUNTER 2021-02-02 05:27 | Emergency (ER) | payer OTHER ==
[~2021-02-02] VITALS: Ht 180.3 cm; Wt 91.8 kg
[~2021-02-02 05:27] MED LIST changes: +AUGMENTIN 875-1 EACH PO; +CIPRODEX OTIC7.5 ML AD
[2021-02-02] MEDS ORDERED: AUGMENTIN 875-1 EACH PO (05:56)
[2021-02-02] MEDS ORDERED: CIPRODEX OTIC7.5 ML AS (05:56)
== END 2021-02-02 06:19 | disposition home or self-care (01) ==
LOC: ED 05:27
DX: H60.92 Unspecified otitis externa, left ear (principal); H66.92 Otitis media, unspecified, left ear; K21.9 Gastro-esophageal reflux disease without esophagitis; F17.200 Nicotine dependence, unspecified, uncomplicated
CPT/HCPCS: 99282

== ENCOUNTER 2021-05-07 10:15 | Inpatient (IN) | payer OTHER ==
[~2021-05-07] VITALS: Ht 180.3 cm; Wt 91.6 kg
[~2021-05-07 10:15] MED LIST changes: +CIPRODEX OTIC7.5 ML AS
--- OUTSIDE RECORDS SUMMARY | 2021-05-07 10:18 | XMS ---
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 E.Joycelyn. VISIT COUNT (12 MO.) 1 [facility] 1 [facility] 2 [facility] 3 [facility]. TOTAL 7 NOTE: Visits indicate total known visits. ED/UCC VISIT TRACKING (12 MO.) 05/07/2021 10:16 [facility] [place] TYPE: Emergency COMPLAINT: - CHEST PAIN,ABDOMINAL PAIN 05/04/2021 21:56 [facility] TYPE: Emergency DIAGNOSES: 418[address]. Vomiting . Unspecified abdominal pain . Nausea with vomiting, unspecified 05/03/2021 02:42 [facility] [place] TYPE: Emergency DIAGNOSES: - Nausea with vomiting, unspecified - VOMITING - VOMITTING [facility] DIAGNOSES: - nausea, vomiting, chills - Emesis - Pain, unspecified - Chills 02/02/2021 05:27 [facility] [place] TYPE: Emergency COMPLAINT: - EAR ACHE DIAGNOSES: - Otalgia, left ear - Unspecified otitis externa, left ear - Gastro-esophageal reflux disease without esophagitis - Otitis media, unspecified, left ear - Nicotine dependence, unspecified, uncomplicated 11/04/2020 13[facility] DIAGNOSES: - Unilateral inguinal hernia, without obstruction or gangrene, recurrent - groin pain - Gastro-esophageal reflux disease without esophagitis 09/01/2020 21:06 [facility] [place] TYPE: Emergency COMPLAINT: - EAR PAIN DIAGNOSES: - Gastro-esophageal reflux disease without esophagitis - Nicotine dependence, unspecified, uncomplicated - Otalgia, left ear - Suppurative otitis media, unspecified, left ear INPATIENT VISIT TRACKING (12 MO.) No inpatient visits to display in this time frame [email or web address]
--- NOTE | 2021-05-07 20:19 | NUR ---
05/07/212018 STEPHEN MCKEON 2005 PATIENT INTO CCU ROOM 126, PATIENT HAS AIRWAY IN PLACE. 6L MASK, NEEDS AIRWAY SUPPORT. 2015 PATIENT PULLED AIRWAY, BEDSIDE REPORT TO CHERY SWEENEY.
--- NOTE | 2021-05-08 07:30 | NUR ---
REPORT RECEIVED FROM SOFÍA SWEENEY. PT IS RESTING IN BED WITH EYES CLOSED, ON ROOM AIR WITH SPO2 98%, HR 80'S AND RR 16.
--- NOTE | 2021-05-08 08:00 | NUR ---
IN TO DO AM ASSSSMENT. PT AWAKENS EASILY, IS ABLE TO ANSWER QUESTIONS APPROPRIATLEY BUT IS DROWSY AND QUICKLY GOES BACK TO SLEEP. DENIED PAIN OR OTHER NEEDS THEN BACK TO SLEEP. NGT IN PLACE TO LIWS, VERY MINIMAL CLEAR COLORED DRAINAGE. ABD SLIGHTLY DISTENDED, MIDLINE DRESSING IN PLACE WITH SOME DRAINAGE THAT APPEARS TO BE FRESH AT BOTTOM OF DRESSING, WILL CONT TO MONITOR. JR ON RIGHT SIDE INTACT, 110 ML EMPTIED OF SEROSANG FLUID AND DRESSING OVER THIS IS CDI. SPENCER DRAINING DARK YELLOW URINE.
--- NOTE | 2021-05-08 08:30 | NUR ---
CALL TO DR WARD TO INFORM HIM OF XRAY RESULTS SUGGESTING TO ADVANCE NGT, ORDER GIVEN TO ADVANCE TUBE 3CM.
--- NOTE | 2021-05-08 08:45 | NUR ---
NGT ADVANCED 3CM, PT INFORMED AND AWARE OF PLAN OF CARE FOR THE DAY. DISCUSSION REGARDING THE PERFORATION, PURPOSE OF NGT AND IVF AND ABX, PT AGREEABLE WITH NO QUESTIONS AND NO REQUESTS OTHER THAN TO SAY "I PROBABLY CANT EAT CAN I, I SURE AM HUNGRY". NPO STATUS DISCUSSED WITH PT, AND ORAL SWABS OFFERED IF NEEDED. PT THEN GOT A PHONE CALL AND IS NOW SITTING IN BED TALKING ON PHONE TO A FRIEND.
--- NOTE | 2021-05-08 11:03 | NUR ---
IN TO CHECK ON PT, HE STATES THAT PAIN IS BEGINNING TO COME BACK, RATING ABD PAIN BACK AT 6/10 AND IS REQUESTING MORE PAIN MEDICATION. 4MG IV MORPHINE GIVEN. JR CHECKED AND EMPTIED OF 60ML SEROSANG FLUID. PT ALSO C/O ROOM BEING COLD, TEMP TURNED UP IN ROOM AND WARM BLANKET PROVIDED.
--- NOTE | 2021-05-08 11:45 | NUR ---
DAUGHTER IN TO VISIT PT. PT REPORTS PAIN DOWN TO 4/10 AND DENIES NEED FOR ANY PAIN MEDICATION.
--- NOTE | 2021-05-08 15:20 | NUR ---
IN CHAIR. PATIENT C/O PAOST-OP ABD PAIN, RATES 6/10.
--- NOTE | 2021-05-08 15:30 | NUR ---
MORPHINE 4 MG IV REPEATED ORDER FOR MORPHINE, IS 4-8 MG MORPHINE IV Q 3 HRS. THERFORE ANOTHER 4 MG OF MORPHINE GIVEN WITHIN RANGE.
--- NOTE | 2021-05-08 15:57 | EKG ---
[facility] [address] [facility] [place], [place] [address] Signed Sinus rhythm with short ME Rightward axis Nonspecific ST abnormality Abnormal ECG No previous ECGs available Confirmed by KALYANI GODDARD MD ([id number]) on 05/08/2021 3:57:42 PM Electronically Signed By: KALYANI GODDARD MD 05/08/21 1557 PATIENT NAME: ANDREIA ALMANZAR Electrocardiogram DATE OF : 63 PHYSICIAN: KALYANI GODDARD MD REPORT #: [id number] REPORT IS CONFIDENTIAL AND NOT TO BE RELEASED WITHOUT AUTHORIZATION
--- NOTE | 2021-05-08 16:10 | NUR ---
BACK TO BED WITH ASSIST. CONTINUES TO C/O ABD PAIN.
--- NOTE | 2021-05-08 16:55 | NUR ---
ASSESSMENT COMPLETE. C/O POST OP ABD PAIN. ASKING ABOUT DILAUDID. TOLD PATIENT I WILL CALL DR. WARD AND TALKE TO HIM ABOUT PAIN MEDICATION. NG TO LIS. CLEAR STOMACH CONTENTS NOTED IN SUCTION CONTAINER. JR IS INTACT AND EMPTIED FOR 35 ML OF SEROSANGUINEOUS FLUID. ABD DRESSING IS INTACT. JR DRESSING INTACT. SCD'S ON. DAUGHTER IS IN ROOM.
--- NOTE | 2021-05-08 18:00 | NUR ---
MORPHINE 4 MG IV GIVEN FOR PAIN. PATIENT HAS BEEN TALKING WITH HIS DAUGHTER WHO HAS BEEN IN ROOM.
--- NOTE | 2021-05-08 18:04 | NUR ---
UPDATED PRN TYLENOL ORDER PER PHARMACY. CAN ONLY GIVE PRN IV TYLENOL Q8 AND A TOTAL OF 3 DOSES. WILL NEED TO SWITCH TO FL IF PATIENT NEEDS MORE TYLENOL AFTER THE 3 DOSES PER PHARMACY GUIDELINES.
--- NOTE | 2021-05-08 18:51 | NUR ---
THIS RN IN TO ASSESS PATIENTS PAIN. PATIENT RESTING IN BED WITH HIS DAUGHTER VISITING AT THE BEDSIDE. PATIENT STATES PAIN IS BETTER CONTROLLED AT THIS TIME AND RATES IT A 3/10. PATIENT DENIES WANTING ANYTHING ELSE FOR PAIN AT THIS TIME. PATIENT EDUCATED ON PAIN SCALE AND EDUCATED TO LET STAFF KNOW IF IT IS STARTING TO GET WORSE AGAIN. NO OTHER NEEDS AT THIS TIME. WILL CONTINUE TO CLOSELY MONITOR.
--- NOTE | 2021-05-08 21:30 | NUR ---
Patient alert, oriented, and cooperative. Denies pain or discomfort. NG intact, encouraged patient to hold when repositioning. Independent in all cares, declined bed bath but Sood care performed. States repeatedly that he is hungry and wants to go home. I encouraged [facility]. Swelling in lower extremities, face, and hands concerning for CHF - particularly in light of penitentiary substance abuse. Daughter and friend spent most of day with patient. Will continue to monitor.
--- NOTE | 2021-05-09 00:53 | NUR ---
Patient sleeping. No sign or symptoms of discomfort. Will continue to monitor.
--- NOTE | 2021-05-09 07:30 | NUR ---
REPORT RECEIVED FROM SOFÍA SWEENEY. PT IS IN BED, RESTING WITH EYES CLOSED. RESP EVEN AND UNLABORED.
--- NOTE | 2021-05-09 08:15 | NUR ---
PT CALLED TO ASK FOR PAIN MEDICATION, STATES PAIN HAS BEEN GOING UP TO 7-8/10 IN ABDOMEN. ALSO STATES THAT HE HAD AN EPISODE OF COUGHING THAT INCREASED PAIN WILL GIVE 4MG IV MORPHINE. ASSESSMENT DONE, NGT IN PLACE DRAINING CLEAR-YELLOW FLUID, TO LIWS. ABD ABOUT THE SAME YESTERDAY, MILDLY DISTENDED, HYPOACTIVE BOWEL SOUNDS. JR IN PLACE DRAINING SEROSANG FLUID. DRESSING MIDLINE HAS NO NEW DRAINAGE ON IT. PT NOTED TO HAVE ORAL TEMP OF 99.4, IS WITH INSTRUCTION GIVEN TO PT, HE DOES IT WITH GOOD EFFORT AND IS AGREEABLE TO DO IT DURING COMMERCIALS. SPO2 WENT FROM 93% TO 99% AFTER USING IS A FEW TIMES. PLAN OF CARE FOR THE DAY DISCUSSED INCLUDING GETTING UP TO CHAIR AND POSSIBLY GOING FOR A WALK AND PT IS AGREEABLE, HE REQUESTS TO BE ABLE TO GO ON A WALK OUTSIDE. WILL GIVE PAIN MEDICATION AND REASSESS PAIN AND TEMP.
--- NOTE | 2021-05-09 08:45 | NUR ---
IV TYLENOL GIVEN FOR PAIN 10/06. LONG TALK WITH PT, HE STATES HE IS WANTING TO STOP SMOKING AND STOP METH USE, OFFERED SMOKING CESSATION COUNSELING BUT HE DENIES "I DONT THINK I NEED ANY HELP". PT IS TEARFUL DISCUSSING BEING THERE FOR HIS SON AND ALSO REPORTS RECENT DEPRESSION, ASKED IF HE HAS CONSIDERED SUICED AT ALL AND HE STATES "NO NOT AT ALL".
--- NOTE | 2021-05-09 10:30 | NUR ---
PT HAS BEEN SLEEPING FOR THE LAST COUPLE OF HOURS. RESP EVEN AND UNLABORED. CALL LIGHT IN REACH.
--- NOTE | 2021-05-09 11:33 | NUR ---
PT ASSISTED UP TO CHAIR, DENIES NEEDS OR NEED FOR PAIN MEDICATION AT THIS TIME.
[2021-05-09] MEDS ORDERED: OMEPRAZOLE20 MG PO (12:00)
[2021-05-09] MEDS ORDERED: ONDANSETRON ODT4 MG PO (12:01)
--- NOTE | 2021-05-09 13:12 | NUR ---
IN TO CHECK ON PT, HE IS SLEEPING, AWAKENS AFTER A BIT, STATES "I WAS SLEEPING A LOT BETTER THAN I WAS LAST NIGHT", REPOSITIONED HIMSELF IN CHAIR SOME, DENIED NEEDS OR NEED FOR PAIN MEDICATION, BACK TO SLEEP.
--- NOTE | 2021-05-09 13:30 | NUR ---
DR WARD IN TO SEE PT, ORDER GIVEN TO D/C NGT AND SPENCER. SPENCER DC/D WITH 10ML WATER REMOVED FROM BALLOON AND INTACT. NGT REMOVED WITH NO DIFFICULTY. PT INFORMED OF PLAN TO MOVE HIM TO ROOM 109, REPORT GIVEN TO BROOK SWEENEY. PT THEN WALKED DOWN TO HIS ROOM, STEADY ON FEET, TOLERATED WELL.
--- NOTE | 2021-05-09 14:00 | NUR ---
AFTER PT INTO NEW ROOM AND WALKING DOWN THE DUNLAP, HE C/O PAIN. 4MG IV MORPHINE GIVEN.
--- NOTE | 2021-05-09 16:30 | NUR ---
IN TO CHECK ON PT WHO IS SITTING UP IN BED, RESTING. PT PLACED ON CLEAR LIQUID DIET, WAS GIVEN APPLE JUICE AND ICE WATER. PT TOLERATED WELL. PT REPORTING SOME SLIGHT UPPER ABD PAIN, MORPHINE GIVEN. ABX STARTED. PT RESTING IN BED, NO ACUTE SIGN OF DISTRESS NOTED. PT HAS CALL LIGHT, VERBALIZES UNDERSTANDING OF WHEN TO CALL FOR ASSISTANCE.
--- NOTE | 2021-05-09 16:30 | OR ---
[facility] [address], [place] [address] Signed DATE OF OPERATION: SURGEON: Melissa Ward MD PREOPERATIVE DIAGNOSES: 1. Perforated duodenal ulcer with generalized peritonitis. 2. Smoking and methamphetamine abuse. 3. History of perforated duodenal ulcer 8 years ago, repaired at [facility]. POSTOPERATIVE DIAGNOSIS: Perforated duodenal ulcer with retroperitoneal abscess; ulcers at pylorus and 2.5 cm in size. PROCEDURE: 1. Exploration of abdomen. 2. Drainage of periduodenal abscess. 3. Mobilization of the duodenum with repair of perforated pyloric ulcer with classic Valeriy patch application. 4. Placement of drain. ANESTHESIA: General endotracheal, Alison Jovanni, EXTRUSION TECHNICIAN and postoperative bilateral TAP blocks. INDICATION: This 56-year-old white man presented to the emergency room with severe abdominal pain, was evaluated by Dr. Corcoran. In the past week, the patient has been seen at [facility] in [place], [facility] in [place], and [facility] in [place] for complaints of epigastric pain. Apparently, CT scan imaging had been obtained showing no abnormality. Evaluation at [place] showed periduodenal free air and extreme inflammatory changes in the region of the duodenum. This was consistent with perforated duodenal ulcer. Of special note, approximately 8 years ago, he had a perforated duodenal ulcer, which he underwent remedy by surgical intervention through an epigastric incision at the [facility] as he describes it. He is not certain what operation was actually undertaken. He has been fluid resuscitated, given intravenous antibiotics, and is now to undergo exploration of the abdomen by open technique with remedy of the perforation wherever it may occur. He understands, as does his daughter, the risks of bleeding, infection, failure to cure the problem, need for resectional therapy and other Electronically Signed By: MELISSA WARD MD 05/09/21 8561 PATIENT NAME: ANDREIA ALMANZAR OPERATIVE REPORT DATE OF : 63 REPORT #: [id number] PHYSICIAN: MELISSA WARD MD PCP: NO PRIMARY CARE PHYSICIAN REPORT IS CONFIDENTIAL AND NOT TO BE RELEASED WITHOUT AUTHORIZATION [facility] [address], [place] [address] Signed unforeseen complications. Understanding this, he wished to proceed. FINDINGS: Indeed, there was a considerable amount of periduodenal inflammatory process and purulence. The gallbladder was secondarily inflamed and very thickened. There was some fusion of the left lateral segment of liver to the lesser curve of the stomach, no doubt related to prior intervention. He also was ultimately found to be in the junction between the bulbar duodenum and the pylorus and was relatively large at 2.5 cm. Mobilization of the second portion of the duodenum was challenging, probably on the basis of prior intervention in that area. Ultimately, good visualization of the ulcer could be obtained. This appeared to be no sign of neoplasm associated with it. Closure of the ulcer was quite impossible due to the friability of the tissue and no doubt related to its chronicity over the past week or more. On that basis, a classic Valeriy patch was applied with excellent effect patching the defect and passing the leak test by insufflation of the stomach with submersion under saline. The drain was placed as well. DESCRIPTION OF PROCEDURE: The patient was brought to the operating room, given a general endotracheal anesthetic. A Sood catheter was placed. Preoperative antibiotic, cefoxitin had been given in the ER and an additional dose of meropenem was given while in the operating room. A limited epigastric incision from the past had been noted. The abdomen was prepared from nipples to knees and after clipping. Previous midline incision was used and it was extended cephalad almost to the xiphoid and inferiorly as well as the midline fascia was somewhat fibrotic from the past. Upon entry to the abdomen, considerable amount of edema and inflammatory fluid was noted. Entry into the peritoneal cavity in the region of the duodenum showed loculated fluid and extreme edema of surrounding soft tissue. A Bookwalter retractor was affixed to the table. With gentle suction and so forth, the periduodenal area was broken down and infected fluid was identified and Gram stain and cultured. A curdled type material was noted, but no solid material was noted. Fusion of the left lateral segment over the gastrohepatic omentum was freed with electrocautery, mobilizing the stomach somewhat. It appeared clear that the perforation was at the junction of the bulb and the stomach (the pylorus). It was posteriorly oriented as might be expected given natural anatomic features and mobility of the duodenum would be essential for further control and remedy. A cochlear maneuver was undertaken to mobilize the duodenum. This was rather lengthy and its execution due to scarring possibly from previous immobilization in the past. Clips were applied to vascular structures in mobilizing the second portion of the duodenum. It was not fully mobilized, but mobilized quite well enough to allow for good visualization of the defect. The gallbladder and liver were retracted cephalad using the Bookwalter attachments. Electronically Signed By: MELISSA AWRD MD 05/09/21 8173 PATIENT NAME: ANDREIA ALMANZAR OPERATIVE REPORT DATE OF : 63 REPORT #: [id number] PHYSICIAN: MELISSA WARD MD PCP: NO PRIMARY CARE PHYSICIAN REPORT IS CONFIDENTIAL AND NOT TO BE RELEASED WITHOUT AUTHORIZATION [facility] [address], [place] [address] Signed Examination of the stomach showed no sign of neoplasm. The Yankauer suction was easily able to pass into the duodenum. Retrograde egress of bilious fluid was noted. The initial attempt at primary closure of the defect was predictably failure due to friability of the tissues. Although this is recurrent hernia, I think it likely was related to chronic smoking and methamphetamine abuse and not related to probable hyperchlorhydria or other usual indicators, for which more definitive antiulcer operation would be performed. It was deemed most advisable to secure the leak with a classic Valeriy patch. The omentum was mobilized and freed and its vascular arcades identified well. A well-vascularized pedicle was freed from the right side with great redundancy and easy ability to reach the area. Using a parachuting type technique of 2-0 PDS suture, a plug of omentum was placed into the defect and secured with interrupted PDS suture. It was tied securely, but not excessively tight so as to avoid ischemia to the well-vascularized omental pedicle. Nasogastric tubes have been by the rack carrier, was insufflated with air rather vigorously with the repair submerged under saline. There was no evidence of leak whatsoever. A nasogastric tube was then placed to suction. Irrigation was undertaken. Photographs were taken and through a separate stab incision, a 7 mm flat Tejas drain was placed in the periduodenal area. Though the gallbladder was rather inflamed, it was secondary to the perforation and not a primary cholecystitis problem. Further efforts at the cholecystectomy deemed inadvisable under the circumstances. The gallbladder was left in situ. Plans were then made for closure. Irrigation was undertaken and fibrin glue applied to the repair area. Midline fascia was reapproximated with running #1 PDS suture. Subcutaneous tissue was irrigated and skin closed with running subcuticular 3-0 Vicryl. Steri-Strips were applied as was an Acticoat dressing. The operation was rather prolonged due to mobilization of the duodenum, but it was accomplished safely. Blood loss was 150 mL in aggregate. Sponge, needle, and instrument counts were reported as correct x3. Melissa Ward MD Electronically Signed By: MELISSA WARD MD 05/09/21 1630 PATIENT NAME: ANDREIA ALMANZAR OPERATIVE REPORT DATE OF : 63 REPORT #: [id number] PHYSICIAN: MELISSA WARD MD PCP: NO PRIMARY CARE PHYSICIAN REPORT IS CONFIDENTIAL AND NOT TO BE RELEASED WITHOUT AUTHORIZATION [address] [address] Signed /BETZAIDA /[id number] cc: Jermain Corcoran MD Copies: JERMAIN CORCORAN MD ~ Electronically Signed By: MELISSA WARD MD 05/09/21 1630 PATIENT NAME: ANDREIA ALMANZAR OPERATIVE REPORT DATE OF : 63 REPORT #: [id number] PHYSICIAN: MELISSA WARD MD PCP: NO PRIMARY CARE PHYSICIAN REPORT IS CONFIDENTIAL AND NOT TO BE RELEASED WITHOUT AUTHORIZATION
--- NOTE | 2021-05-09 16:30 | HP ---
[facility] [address], [place] [address] Signed ADMISSION DATE: 05/07/2021 REASON FOR ADMISSION: Probable perforated duodenal ulcer (recurrent). HISTORY OF PRESENT ILLNESS: This 56-year-old white man who presented to the emergency room was evaluated by Dr. Corcoran with severe epigastric tenderness and pain. A CT scan was performed which shows tika duodenal free air and tense inflammatory changes highly suggestive of perforated ulcer. Notably, approximately 8 or 9 years ago patient suffered a perforated duodenal ulcer as well. The exact treatment approach was unknown, though he believes that surgery was performed at [facility]. In the past week, he has been to 3 different hospitals, one at [facility], the other in [facility] in [place], and also [facility] in [place]. He says that CT scans have been performed at all of these hospitals with his complaint of epigastric pain. His evaluation today on CT certainly confirms free air. Of special note, the patient is a long-standing methamphetamine user. He additionally is a smoker. He takes no antiulcer medications nor has he in the past he says. The patient is accompanied by his daughter who has been taking him to these various places for evaluation and treatment. SOCIAL HISTORY: He is unemployed, previously worked for [employer]. He lives in [place]. His daughter looks after him, though he did not live in the same household. REVIEW OF SYSTEMS: He has rather significant and severe epigastric and right subcostal pain. He has no particular shortness of breath. He has had no hematemesis. He has not eaten since yesterday he says. PHYSICAL EXAMINATION: GENERAL: This is a chronically ill-appearing white man who looks to be in mild discomfort only at this time. An IV is running. Mucous membranes are slightly dry. Trachea is midline. CHEST: Clear. HEART: Regular. Electronically Signed By: MELISSA WARD MD 05/09/21 1630 PATIENT NAME: ANDREIA ALMANZAR HISTORY AND PHYSICAL DATE OF : 63 REPORT #: [id number] PHYSICIAN: MELISSA WARD MD PCP: NO PRIMARY CARE PHYSICIAN REPORT IS CONFIDENTIAL AND NOT TO BE RELEASED WITHOUT AUTHORIZATION [facility] [address], [place] [address] Signed ABDOMEN: Nondistended. He has a relatively limited epigastric incision, probably 4 inches or so in length. He has marked tenderness and guarding in the epigastric area. The abdomen is without sign of ascites. EXTREMITIES: Show no clubbing, cyanosis, or edema. VITAL SIGNS: His vital signs initially showed a pulse of 101, blood pressure 120/76, and that is remarkably stable thus far. LABORATORY STUDIES: Show a white count of 16.1, hematocrit 44.6, platelets 542,000. Chem profile is essentially normal. Creatinine is 1.07, albumin is 2.7, lipase 80. Serology shows negative COVID test. Urinalysis was not received. I have reviewed the CT scan in detail in person with the radiologist, Dr. Marc Long. His interpretation includes diffuse peritonitis, perforated ulcer in the right lateral aspect of the pyloral channel or duodenal bulb defect approximately 1.3 cm. Bilateral pleural effusion and gallbladder hydrops. The patient has initiated IV fluid and intravenous administration as well as IV antibiotic cefoxitin per Dr. Corcoran. ASSESSMENT: The patient has recurrent perforated duodenal ulcer. most likely contributing factors to this problem are lifestyle issues including incessant tobacco smoking and methamphetamine use. He has been on no cytoprotective agents. I discussed the findings with the patient and his daughter who accompanies him. I would recommend additional fluid resuscitation, IV antibiotics, and of course, exploration of abdomen and repair of the perforation. Although normally I would recommend a laparoscopic approach, in his situation with an epigastric incision and smouldering problems for at least a week already, repeat laparotomy and remedy of the problem would be most appropriate. A Valeriy patch may be the most suitable approach to the problem unlike intractable ulcer disease related to H pylori or peptic disease, recurrent disease of this sort may or may not be best managed by resection. I believe the most likely source of his problem is smoking and methamphetamine use, and on that basis, non resectional therapy may be reasonable, specifically a Valeriy patch plus or minus the concept of vagal truncal vagotomy. Truncal vagotomy does have its own associated problems on occasion including gastric emptying problems and therefore the dominant issue at present is that of control of the perforation and cleansing of the peritoneal cavity from the perforation. We will anticipate operation promptly today. He and his daughter who accompanies him are well aware of the risks and benefits of our planned approach and agreed to proceed. Electronically Signed By: MELISSA WARD MD 05/09/21 3592 PATIENT NAME: ANDREIA ALMANZAR HISTORY AND PHYSICAL DATE OF : 63 REPORT #: [id number] PHYSICIAN: MELISSA WARD MD PCP: NO PRIMARY CARE PHYSICIAN REPORT IS CONFIDENTIAL AND NOT TO BE RELEASED WITHOUT AUTHORIZATION [address] [address] Signed MD KENNEDI Medina/MODL /[id number] cc: Jermain Corcoran MD Copies: JERMAIN CORCORAN MD ~ Electronically Signed By: MELISSA WARD MD 05/09/21 1630 PATIENT NAME: ANDREIA ALMANZAR HISTORY AND PHYSICAL DATE OF : 63 REPORT #: [id number] PHYSICIAN: MELISSA WARD MD PCP: NO PRIMARY CARE PHYSICIAN REPORT IS CONFIDENTIAL AND NOT TO BE RELEASED WITHOUT AUTHORIZATION
--- NOTE | 2021-05-09 17:45 | NUR ---
IN TO CHECK ON PT, WHO IS SITTING UP IN BED CONSUMING HIS CLEAR LIQUID DIET. REPORTS CONSISTENT IRRITATION AFTER HAVING NG TUBE REMOVED. ENCOURAGED PT TO USE ICE CHIPS AND EAT HIS SORBET TO SOOTHE THE THROAT. PT IS ALERT, ORIENTED, AND STABLE.
--- NOTE | 2021-05-09 18:27 | NUR ---
CALLED DR WARD TO REPORT PRELIMINARY CULTURE REPORT OF THE ANAEROBIC/AEROBIC/GRAM STAIN OF THE PERITONEAL FLUID SHOWING YEAST ISOLATED GROWTH. VERBAL ORDER DIFLUCAN 200MG IV QDAY.
--- NOTE | 2021-05-09 19:49 | NUR ---
medicated with morphine 4mg IV per c/o abd pain
--- NOTE | 2021-05-09 20:12 | NUR ---
Pt awake, coop, comfortable. midline abd incision covered with Opticot and opsite, and old drainage at base.Abd slight distention, firm and tender, jps in place w ss drainage. skin splotchy all over. fingers edematous red and slight cyanosis at fingertips, normal as per report and pt. IV infusing RAC, started first dose of Diflucan IV, med teaching done. semi receptive. SCDS in place, edema to LE, blotchy LE skin coloring too. cooperative wtih assessment.
--- NOTE | 2021-05-09 23:59 | NUR ---
IVF INFUSING, ON ROOM AIR, RESTING, EYES CLOSED, NO DISTRESS, REPOSITINS SELF IN BED. SCDS IN PLACE. USES CALL LIGHT,
--- NOTE | 2021-05-10 01:40 | NUR ---
pt awakens easily, c/o abd pain, medicated with morphine 4mg IV. midline abd incision with opticot covered with opsite dressing with old drainage. R JR w ss drainage.abd tender, faint bowel tones, slight distention. IVF infusing w/o problems, on room air
--- NOTE | 2021-05-10 05:27 | NUR ---
on room air, alert and oriented. IVF infusinf w/o problems. Midline abd dressing with old drainage in place, JR draining ss drainage. abd slight distention, very hypoactive bowel tones, Opticot dressing in place with old drainage at base. Stated not passing gas at this time, "I was burping lots earlier but not now". Has been medicated with morphine IV per abd pain with good pain relief. Up to edge of bed and stood up, walked towards bed and back to bed, tolerated fair, back to bed, helped with repositioning. edema, erythema of hands/fingers present, slight duskiness tip of fingers, pt stated normal, Radial pulses palpable. has splotchy skin colored- face, chest, back and le. scds in place, edema to LE, denies numbness or tingling of extremities at this time. Tolerating diet and fluids well. Continue sto encourage hands on JR care
--- NOTE | 2021-05-10 07:30 | NUR ---
THIS RN RECEIVED SHIFT REPORT FROM PATEL MILLER. PATIENT RESTING QUIETLY IN BED IN SEMI-FOWLERS POSITION, EYES CLOSED, RESPIRATIONS ARE REGULAR AND EVEN, AND CALL LIGHT IS IN REACH.
--- NOTE | 2021-05-10 08:03 | NUR ---
PT ASLEEP IN BED. WHITE BOARD UPDATED. CALL LIGHT IN REACH. NO FURTHER NEEDS AT THIS TIME.
--- NOTE | 2021-05-10 10:25 | NUR ---
PT AWAKE IN BED EATING JELLO. CALL LIGHT IN REACH. NO FURTHER NEEDS AT THIS TIME.
--- NOTE | 2021-05-10 10:30 | NUR ---
THIS RN IN TO SEE PATIENT. PATIENT'S ABD PAIN 8/10 AND 4MG SIVP MS WAS GIVEN WITH OTHER AM MEDS. BOWEL TONES ACTIVE IN THE LOWER QUADS AND HYPOACTIVE IN THE UPPER QUADS. JR ONLY PUT OUT 8MLS OF SEROSANGUINOUS FLUID. PATIENT SAT UP IN BED IN SEMI-FOWLERS POSITION TO TRY AND DRINK HIS BREAKFAST. PATIENT DENIES ANY OTHER CARE NEEDS AT THIS TIME. CALL LIGHT IS IN REACH.
--- NOTE | 2021-05-10 11:59 | NUR ---
THIS RN IN TO SEE PATIENT. pT COMPLAINT OF 6/10 ABD PAIN. 4MG SIVP MS GIVEN. PATIENT IS WORKING ON EATING HIS LUNCH. PATIENT HAD NO OTHER CARE NEEDS AT THIS TIME. CALL LIGHT IS IN REACH.
--- NOTE | 2021-05-10 13:01 | NUR ---
PT ALERT, ORIENTED AND SEEMED PLEASED WITH MY VISIT. NOTED EDEMA ON PT'S R HAND. PT OPENED UP THAT HE WAS VERY PLEASED WITH HIS CARE, AND ADNITTED HE WAS FRIGHTENED UNTIL DR WARD WAS ABLE TO LOCATE ISSUE AND DO SURGERY. PT ABLE TO HAVE JELLO, COPING WITH HIS SITUATION NOW MUCH BETTER. GAVE G.POST AND BLESSING. PT RRECEIVED PHONE CALL, WILL FOLLOW
--- NOTE | 2021-05-10 13:23 | NUR ---
PATIENT RESTING QUIETLY IN SEMI-FOWLERS POSITION, RESPIRATIONS ARE REGULAR AND EVEN, EYES ARE CLOSED, AND CALL LIGHT IS IN REACH. PATIENT HAS NO CURRENT CARE NEEDS AT THIS TIME.
--- NOTE | 2021-05-10 14:00 | NUR ---
ATTEMPTED TO ASSESS PATIENT. PATIENT ASLEEP IN BED, DOES NOT WAKE TO VOICE. WILL RETURN FOR ASSESSMENT.
--- NOTE | 2021-05-10 14:00 | NUR ---
THIS RN IN TO SEE PATIENT. PAIN IS 7/10 AGAIN AND 4MG SIVP MS GIVEN WITH 1400 MEDS. PATEINT ASSESSMENT COMPLETE. PATIENT HAS TAKEN A PHONE CALL. PATIENT URINAL EMPTIED AND PATIENT DENIES ANY OTHER CARE NEEDS AT THIS TIME. CALL LIGHT IS IN REACH.
--- NOTE | 2021-05-10 15:00 | NUR ---
INTO PATIENT ROOM, PATIENT AWAKE WATCHING TV. PATIENT APPEARS SLEEPY, BUT IS ABLE TO ANSWER QUESTION APPROPRIATELY. 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 PATIENT STATES HE ALSO HAS A DAUGHTER WHO LIVES IN [place]OWN AND IS ABLE TO HELP IF NEEDED AT DISCHARGE. PATIENT DENIES NEED FOR DME OR FINANCIAL ASSISTANCE AT THIS TIME. PATIENT STATES HE [facility], BUT HAS NOT SE[facility] THEM IN A FEW YEARS. NO FURTHER QUESTIONS OR CONCERNS FROM PATIENT AT THIS TIME. WILL CONTINUE TO FOLLOW UP WITH PATIENT DURING HIS VISIT.
--- NOTE | 2021-05-10 15:30 | NUR ---
THIS RN IN TO SEE PATIENT. PATIENT RESTING QUIETLY, EYES CLOSED, RESPIRATIONS ARE REGULAR AND EVEN, CALL LIGHT IS IN REACH. PATIENT HAS NO CURRENT CARE NEEDS.
--- NOTE | 2021-05-10 17:23 | NUR ---
THIS RN IN TO ROOM TO CHECK ON PATIENT. LAB HERE TO DRAW LABS. PATIENT SAT UP TO EAT HIS DINNER AND HAS BEEN DOING WELL WITH THE CLEAR LIQUIDS. ABD PAIN IS NOW 7/10 AND 4MG SIVP MS GIVEN. PATIENT DENIED ANY OTHER NEEDS AT THIS TIME. REALIZED PATIENT HAS NOT BEEN UP WALKING TODAY AND TALKED WITH PATIENT ABOUT DOING THIS AFTER DINNER. LEAVING THE ROOM FOR PATIENT TO EAT HIS DINNER. URINAL EMPTIED. CALL LIGHT IS IN REACH.
--- NOTE | 2021-05-10 17:51 | NUR ---
PT AWAKE IN BED EATING DINNER. CALL LIGHT IN REACH. NO FURTHER NEEDS AT THIS TIME
--- NOTE | 2021-05-10 18:24 | NUR ---
PATIENT DEVELOPED HICCUPS AFTER EATING DINNER WHICH IS CAUSING HIM SIGNIFICANT PAIN. 4MG SIVP MS WAS GIVEN. PATIENT HAS NO OTHER CARE NEEDS AT THIS TIME. CALL LIGHT IS IN REACH.
--- NOTE | 2021-05-10 19:00 | NUR ---
REPORT RECEIVED FROM OFFGOING RN, DARCI. PT UP AMBULATING IN THE DUNLAP WITH 1 PA FROM GLORIA.
--- NOTE | 2021-05-10 19:00 | NUR ---
PATIENT UP WITH GLORIA ROGERS WALKING LAPS IN THE HALLWAY.
--- NOTE | 2021-05-10 19:44 | NUR ---
MD TO ROOM TO DISCUSS POC. PT DENIES NEEDS AT THIS TIME. CALL LIGHT IN REACH.
--- NOTE | 2021-05-10 20:40 | NUR ---
PT ASSESSMENT COMPLETE. PT RATING PAIN 8/10 TO ABD. PRN ADMINISTERED. SEE EMAR. PT DENIES NAUSEA OR SOB AT THIS TIME. PT WITH HICCUPS, STATES THIS IS CONTRIBUTING TO INCREASED ABD PAIN. ABD WITH MODERATE DISTENSION. BT'S HYPOACTIVE. ABD TENDER TO PALPATION. MIDLINE WITH ACTICOAT AND SMALL AMOUNT OF OLD DRAINAGE. JR TO RUQ, SEROSANG DRAINAGE PRESENT. PT DENIES FLATUS THIS EVENING. BLE WITH 2+ PTITING EDEMA. SCROTAL EDEMA NOTED. BILATERAL HANDS REDDENED. IV FLUSHED WITH 10 ML NS, WNL. IVF INFUSING ORDERED. PT DENIES FURTHER NEEDS AT THIS TIME. CALL LIGHT IN [facility].
--- NOTE | 2021-05-10 22:35 | NUR ---
PT UTILIZES CALL LIGHT, REQUESTS PRN PAIN MEDICATION. PT REPORTS PAIN, 6-7/10 TO ABD. PRN ADMINISTERED, SEE EMAR. PT DENIES FURTHER NEEDS AT THIS TIME. CALL LIGHT IN REACH.
--- NOTE | 2021-05-11 00:58 | NUR ---
PT UTLIZES CALL LIGHT. STATES THAT LAST DOSE OF PRN MORPHINE DID NOT TOUCH HIS PAIN AT ALL. REQUESTS ADDITIONAL DOSE. PRN MORPHINE AND OFIRMEV ADMINISTERED. PT DENIES FURTHER NEEDS AT THIS TIME. CALL LIGHT IN REACH.
--- NOTE | 2021-05-11 01:49 | NUR ---
PT ROUNDING. PT RESTING IN BED SNORING AUDIBLY. 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 PT ASSESSMENT COMPLETE. STATES THAT PAIN IS SOMEWHAT IMPROVED. RATES 7/10 TO ABD. DENIES NAUSEA OR SOB. ABD DISTENED, BT'S HYPOACTIVE, ABD TENDER TO PALPATION. JR TO RLQ, SEROSANG DRAINAGE PRESENT IN JR. MIDLINE WITH OLD SHADOWING, D/I. SCDS IN PLACE. IVF INFUSING ORDERED. PT DENIES FURTHER NEEDS AT THIS TIME. CALL LIGHT IN REACH.
--- NOTE | 2021-05-11 04:56 | NUR ---
PT ROUNDING. PT RESTING IN BED WITH EYES CLOSED. SNORING AUDIBLY. PT WAKES EASILY WHILE DATA SOFTWARE ENGINEER HANGING NEW IV FLUILDS. PT STATES THAT PAIN IS IMPROVED, RATES 6/10. STATES HE IS "KEEPING CONCENTRATION" TO HELP KEEP MIND OFF OF PAIN. STATES THIS HAS BEEN EFFECTIVE. PT NOTED TO BE QUITE DIAPHORETIC. VS OBTAINED. WNL. PT STATES HE FEELS "CHILLY" PT WIPED DOWN, GOWN CHANGED, PILLOW CASE CHANGED. JR EMPTIED 5 ML OF SEROSANG FLUID PRESENT. TUBING STRIPED. PT WITH URINAL BETWEEN LEGS. STATES HE IS ATTEMPTING TO VOID, DOES NOT FEEL URGE AT THIS TIME. PT DENIES FURTHER NEEDS A THIS TIME. CALL LIGHT IN REACH.
--- NOTE | 2021-05-11 06:08 | NUR ---
PT ROUNDING. PT RESTING IN BED AWAKE STATES THAT HE FELL ASLEEP AND "LOST CONCENTRATION" ON HIS PAIN. REPORTS THAT PAIN IS NOW 7/10, REQUESTS PRN. ADMINISTERED, SEE EMAR. PT RESTING WITH EYES CLOSED DENTAL EQUIPMENT MECHANIC EXITS THE ROOM. CALL LIGHT IN REACH.
--- NOTE | 2021-05-11 06:58 | NUR ---
CALLED FOR PT UPDATE REGARDING PAIN CONTROL OVERNIGHT AND LOW URINE OUTPUT. NEW MED ORDERS RECEIVED, TORB.
--- NOTE | 2021-05-11 07:26 | NUR ---
THIS RN RECEIVED SHIFT REPORT FROM PATEL GTZ. PATIENT RESTING QUIETLY IN SEMI-FOWLERS POSITION, EYES CLOSED, RESPIRATIONS ARE REGULAR AND EVEN, AND CALL LIGHT IS IN REACH. PATIENT HAS NO CURRENT CARE NEEDS AT THIS TIME.
--- NOTE | 2021-05-11 08:20 | NUR ---
THIS RN AND STUDENT NURSE IN TO CHECK ON PATIENT. PATIENT'S PAIN IS 5/10 AT THIS TIME IN HIS ABD AND WE WILL BE TRYING TO TRANSITION HIM TO ORAL PAIN MEDS TODAY. QUALIFIED CRAFT WORKER ELECTRICIAN AND HER INSTRUCTOR WILL BE IN TO GIVE MEDICATIONS. AM ASSESSMENT COMPLETE. PATIENT'S BELLY SEEMS A LITTLE SOFTER THAN YESTERDAY, BUT RUQ/RLQ BOWEL TONES ARE RARE AMD LUQ/LLQ BOWEL TONES SOUND TYMPANIC. PATIENT'S JR DRAIN STRIPPED AND EMPTIED FOR 2ML OF SEROUS DRAINAGE. PATIENT DENIES NAUSEA. URINAL EMPTIES. BREAKFAST IS ARRIVING AND UNIT RACK PRODUCTION WORKER'S COMING IN TO GET PATIENT UP IN THE CHAIR. PATIENT FAITHFULLY WEARING SCD'S WHILE IN BED. PATIENT HAS NO OTHER CARE NEEDS AT THIS TIME. NO NEW DRAINAGE ON ABD DRESSING.
--- NOTE | 2021-05-11 08:26 | NUR ---
PATIENT UP TO CHAIR, SBA. LINENS CHANGED. WARM WASHCLOTH GIVEN. CALL LIGHT IN REACH. NO FURTHER NEEDS AT THIS TIME.
--- NOTE | 2021-05-11 09:18 | NUR ---
UPON ENTRY OF ROOM, PT SLEEPING AND SNORING IN THE CHAIR . WAKE TO VOICE AND ORIENTED X3. RATES PAIN 8/10 ABDOMINAL. STATED TOLERABLE LEVEL AT 5/10. PRN MEDICATION UTILIZED. ABDOMEN SLIGHTY DISTENDED BUT SOFT, PAINFUL UPON PALPATION. PT STATES NO GAS SINCE LAST NIGHT. PT EDUCATED ON AMBULATION GOALS FOR TODAY. PATIENT FALLS ASLEEP QUICKLY WITHOUT STIMULI. CALL LIGHT AND TRAY TABLE WITHIN REACH.
--- NOTE | 2021-05-11 10:34 | NUR ---
PATIENT WOKE UP WITH HICCUPS AND CAUSING 7/10 ABD PAIN. 2MG SIVP MS GIVEN. PATIENT HAD NO OTHER CARE NEEDS AT THIS TIME. CALL LIGHT IS IN REACH.
--- NOTE | 2021-05-11 10:35 | NUR ---
PATIENT REQUESTING TO SHOWER. WII ADDRESS THIS WITH WE HE DOES ROUNDS HAS NOT REMOVED PATIENT'S OP DRESSING YET.
--- NOTE | 2021-05-11 10:50 | NUR ---
PATIENT UP AND OUT OF CHAIR TO WALK. PATIENT WALKED 2 LAPS AROUND FLOOR. NO ASSISTANCE NEEDED. AFTER WALKING COMPLETED, PATIENT BACK TO BED PER HIS REQUEST. TOLDERATED WALKING WELL AND NO COMPLAINT OF ADDITIONAL PAIN, REPORTED PAIN WAS MANAGEABLE. CALL SMITH AND PERSONAL BELONGINGS WITHIN REACH.
--- NOTE | 2021-05-11 11:53 | NUR ---
CONNECT WITH PT HE WAS AMBULATING IN [place] WITH SN. PT SEEMED TO BE ENJOYING THE WALK, GAVE ENCOURAGEMENT, HE THANKED ME. WILL FOLLOW
--- NOTE | 2021-05-11 12:30 | NUR ---
PATIENT SEEMS TO BE TIRED AFTER HIS WALK EARLIER AND IS CURRENTLY IN LOW FOWLERS POSITION, EYES CLOSED, RESPIRATIONS ARE REGULAR AND EVEN, AND CALL LIGHT IS IN REACH.
--- NOTE | 2021-05-11 13:27 | NUR ---
PATIENT CONTINUES TO REST QUIETLY IN BED, RESPIRATIONS ARE REGULAR AND EVEN, EYES ARE CLOSED, AND CALL LIGHT IS IN REACH. PATIENT HAS NO CURRENT CARE NEEDS.
--- NOTE | 2021-05-11 15:40 | NUR ---
PATIENT JUST FINISHED WALKING SEVERAL LAPS AROUND THE MED/SURG UNIT AND PAIN IN THE ABD IS 7/10 AND THE SECOND ALLOWED TAB OF PERCOCET GIVEN. MIDLINE ACTICOTE DRESSSING REMOVED PER VERBAL ORDER FROM WHO WAS JUST IN THE ROOM TALKING WITH THE PATIENT. IT WAS NOTED THAT PATIENT'S LEFT FOOT SEEMED MUCH WARMER AND A LITTLE RED AND LOOKED AT IT AND WAS NOT CONCERNED AT THIS TIME. ALSO INFORMED THAT PATIENT IS PASSING GAS, BUT BOWEL TONES ON THE ROQ/RLQ WERE RARE AND LUQ/LLQ WERE TYMPANIC AND EVALUATED AND IS NOT CONCENED AT THIS TIME. MIDLINE INCISION WELL APPROXIMATED AND COVERED WITH DRIED STERISTRIPS. PATIENT HAS NO OTHER CARE NEEDS AT THIS TIME. CALL LIGHT IS IN REACH. GAVE A VERBAL ORDER THAT PATIENT MAY SHOWER.
--- NOTE | 2021-05-11 17:35 | NUR ---
PATIENT SITTING ON BEDSIDE EATING HIS NEW FULL LIQUID DIET. PATIENT STATES,"I'M LOOKING FORWARD TO GETTING BETTER AND CHANGING MY LIFE FOR THE BETTER." PATIENT DID NO EXPOUND ON THIS THOUGHT. PATIENT PAIN IS 4/10 AND HE IS COMFORTABLE AT THIS TIME. 1700 ANTIBIOTIC STARTED. PATIENT HAS NO OTHER CARE NEEDS AT THIS TIME. CALL LIGHT IS IN REACH.
--- NOTE | 2021-05-11 17:59 | NUR ---
PATIENT SITTING UP ON SIDE OF BED FOR DINNER. VITALS AND I&O'S CHARTED. CALL LIGHT IN REACH. NO FURTHER NEEDS AT THIS TIME.
--- NOTE | 2021-05-11 19:40 | NUR ---
RECEIVED REPORT FROM DAY SHIFT RN. PATIENT IS SITTING IN BED TALKING ON PHONE NO NEEDS NOTED. CALL LIGHT IN REACH.
--- NOTE | 2021-05-11 21:08 | NUR ---
PATIENT ASSESEMENT COMPLETED. VITALS TAKEN AND RECORDED. INTAKE AND OUTPUT RECORDED. FRESH WATER PROVIDED. IV INFUSING PER ODRDER. SCANT DRAINAGE IN JR. DRESSING MID ABD C/D//, OPEN TO AIR, AND STERI STRIPS PRESENT. PATIENTS SCHEDULED MEDICATIONS GIVEN PER ORDER. ACTIVE BOWEL TONES. PATIENT BERNADINE ANY NAUSEA. PATIENT REPORTS 4/10 PAIN AND DENIES THE NEED FOR PAIN MEDICATION AT THIS TIME. NO FURTHER NEEDS. NOTED. CALL LIGHT IN REACH.
--- NOTE | 2021-05-11 21:21 | NUR ---
PATIENT REPORTS 6/10 PAIN IN HIS LOW ABD. PRN PAIN MEDICATION GIVEN PER ORDER. PATIENT DENIES ANY FURTHER NEEDS. CALL LIGHT IN REACH.
--- NOTE | 2021-05-11 22:53 | NUR ---
PATIENT REPORTS NAUSEA. PATIENT PROVIDED WITH EMESIS BAG, PATIENT DENIES THE NEED FOR NAUSEA MEDICCATION AT THIS TIME. WATM PACK PROVIDED FOR HIS ABD. NO FURTHER NEEDS NOTED. CALL LIGHT IN REACH.
--- NOTE | 2021-05-11 23:42 | NUR ---
PATIENT IS RESTING IN BED WITH EYES CLOSED, RR 17. CALL LIGHT IN REACH. IV INFUSING PER ORDER.
--- NOTE | 2021-05-12 01:13 | NUR ---
PATIENTS SCHEDULED ABX INFUSING PER ORDER. PATIENT IS RESTING IN BED. NO NEEDS NOTED. CALL LIGHT IN REACH.
--- NOTE | 2021-05-12 02:46 | NUR ---
SCHEDULED MEDICATIONS GIVEN PER ORDER BY LESLIE SWEENEY. PATIENT DENIES ANY PAIN. IV INFUSING PER ORDER. NO FURTHER NEEDS NOTED. CALL LIGHT IN REACH.
--- NOTE | 2021-05-12 03:22 | NUR ---
PATIENT IS RESTING IN BED WITH EYES CLSOED, RR 15. CALL LIGHT IN REACH. IV INFUSING PER ORDER.
--- NOTE | 2021-05-12 05:24 | NUR ---
MORNING VITALS TAKEN AND RECORDED. INTAKE AND OUTPUT RECORDED. PATIENTS IV INFUSING PER ORDER. FRESH ICE WATER PROVIDED. PATIENT DENIES ANY NAUSEA. PATIENT RATES PAIN AT A 4/10, AND DENIES THE NEED FRO PAIN MEDICATION AT THIS TIME. NO FURTHER NEEDS NOTED. CALL LIGHT IN REACH.
--- NOTE | 2021-05-12 06:58 | NUR ---
PATIENT IS RESTING IN BED WITH EYES CLOSED, RR 18. CALL LIGHT IN REACH.
--- NOTE | 2021-05-12 07:28 | NUR ---
Bedside shift report deferred as patient is sleeping and did not want to wake when we attempted to do bedside shift report. We allowed the patient to sleep since he had only being intermittently sleeping throught the solar panel technician.
--- NOTE | 2021-05-12 07:52 | NUR ---
Patient awake now and requesting pain medications.
--- NOTE | 2021-05-12 08:40 | NUR ---
AM medications started, assessment completed, updated the patient on the plan of care for today.
--- NOTE | 2021-05-12 08:53 | NUR ---
Patient has the hiccups again, offerred water to dry and gulp to see if this will assist. He had sugar for them during the night, however he refuses it now.
--- NOTE | 2021-05-12 09:25 | NUR ---
PT VS I/O DONE, PT IS COMFORTABLY RIGHT NOW WANTS TO TRY A SHOWER IN ABOUT 1 HOUR.+
--- NOTE | 2021-05-12 09:40 | NUR ---
PT ALERT, ORIENTED AND HAD JUST FINISHED AM MEAL-OATMEAL. PT SAID HE SLEPT OK, LOOKS LIKE HE IS FEELING BETTER. GLORIA CASTRO IN CARING FOR PT. GAVE BLESSING, WILL FOLLOW NEEDED
--- NOTE | 2021-05-12 09:48 | NUR ---
Patient continues to fall asleep during converstaion, states his pain is still at a 6. IV antibiotic started.
--- NOTE | 2021-05-12 11:35 | NUR ---
patient in bed, with a book laying on his leg, and he is asleep with head of bed elevated
--- NOTE | 2021-05-12 12:14 | NUR ---
PT IS UP TO CHAIR, LINENS CHANGED, SHOWER SET UP FOR WHEN ANTIBIOTICS ARE FINIHSIED. WILL CALL WHEN DONE EATTING.
--- NOTE | 2021-05-12 12:57 | NUR ---
PT IN SHOWER, HAIR WASHED
--- NOTE | 2021-05-12 13:53 | NUR ---
patient up in the chair, has already had a shower, which in turn did make him feel a little better. IV fluids restarted, 1400 medication as well is being given. No change in assessment at this time. IV access flushes without difficulty
--- NOTE | 2021-05-12 14:30 | NUR ---
No needs at this time, up in the chair reading a book and listening to TV
--- NOTE | 2021-05-12 16:10 | NUR ---
Patient continues to be up in the chair. IVF were changed to D5LR @100, JR assessed, site dressing changed, steri strips removed.
--- NOTE | 2021-05-12 16:26 | NUR ---
patient requested pain medication for pain of 7, Percocet 2 tabs given
--- NOTE | 2021-05-12 17:25 | NUR ---
Pain slightly better, 1700 IV antibiotic started, patient having dinner, on the phone, listening to the TV
--- NOTE | 2021-05-12 18:49 | NUR ---
Patient pain has improved, feels a little better after eating as well.
--- NOTE | 2021-05-12 19:30 | NUR ---
SHIFT REPORT RECEIVED FROM SAHIL SWEENEY. PT UP IN CHAIR VISITING WITH FAMILY. IV FLUIDS INFUSING PER ORDER. NO OTHER NEEDS. CALL LIGHT IN REACH.
--- NOTE | 2021-05-12 21:30 | NUR ---
ASSESSMENT, VS AND I&O COMPLETED. GCS 15, A&O X4. LUNGS CLEAR, HEART TONES REGULAR. ABD SOFT, TENDER, BOWEL TONES ACTIVE. JR WNL, SCANT SEROUS OUTPUT.INCISION WNL, JAMES. GENERALIZED EDEMA IN BUE, THIGHS AND SCROTUM. 2+ EDEMA IN BLE. DUSKY HAND, FINGERS AND FEET NOTED WITH INCREASED CAP REFILL TIME OF 4 SECONDS. CMS INTACT. IV WNL, IV FLUIDS INFUSING PER ORDER. SCHEDULED MEDS PROVIDED. NO OTHER NEEDS. CALL LIGHT IN REACH.
--- NOTE | 2021-05-12 23:46 | NUR ---
PT RESTING IN CHAIR. IV FLUIDS INFUSING PER ORDER. NO NEEDS AT THIS TIME. CALL LIGHT IN REACH.
--- NOTE | 2021-05-13 02:00 | NUR ---
SCHEDULED MED PROVIDED. ASSESSMENT COMPLETED. PT DENIES PAIN AND NAUSEA. INCISIONS WNL, DRY. JR WNL. NO OTHER NEEDS. CALL LIGHT IN REACH.
--- NOTE | 2021-05-13 04:09 | NUR ---
PT RESTING IN BED, EYES CLOSED. RR EVEN, UNLABORED. CALL LIGHT IN REACH.
--- NOTE | 2021-05-13 05:16 | NUR ---
VS AND I&O COMPLETED. JR EMPTIED OF 2ml SS OUTPUT, STRIPPED. PT HAD 1 EPISODE OF HICCUPS RESOLVED BY SLEEP. NO OTHER NEEDS AT THIS TIME. CALL LIGHT IN REACH.
--- NOTE | 2021-05-13 07:28 | NUR ---
patient laying in bed head of bed is elevated, he continues to have active hiccups even as he sleeps. MD saw him this AM and updated the patient on the plan of care. Patient will continue with IV hydration, full liquid diet, and needs to start ambulating. 0800 Medication being given.
--- NOTE | 2021-05-13 08:22 | NUR ---
patient snoring, does wake for his medication, but falls asleep during conversation.
--- NOTE | 2021-05-13 09:00 | NUR ---
Spoke with Erick. He states he is tired, but ok. 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 Pt states he uses randomly and has a 10 yo son. States he would like to stop meth and smoking. He is agreeable to speak with a peer support from [facility]. [facility] Ferris with [facility]. Will ask admitting to update in his chart.
--- NOTE | 2021-05-13 09:15 | NUR ---
THIS RN TO ROOM TO ASSIST WITH MEDICATION ADMINISTRATION. PT REPORTS 7/10 ACHING ABDOMINAL PAIN AND REQUESTS PAIN MEDICATION, SEE MAR FOR MEDICATION GIVEN. IV ASSESSED, WNL, IV MEDICATION STARTED (SEE MAR). PT ASSISTED WITH REPOSITIONING FOR BREAKFAST. NO ADDITIONAL REQUESTS OR COMPLAINTS AT THIS TIME. CALL LIGHT WITHIN REACH. BED RAILS UP.
--- NOTE | 2021-05-13 10:11 | NUR ---
Patient snoring, eyes closed, no signs of acute distress. Respirations 18 IV antibiotic hunged, with new tubing primary and secondary with a 100 ml NS bag to flush with the [place], which is compatiable at [facility] only with his other fluids
--- NOTE | 2021-05-13 10:39 | NUR ---
patient compliant of hiccups again. Will continue to monitor and update MD as needed. Will offer fluids as well.
--- NOTE | 2021-05-13 12:00 | NUR ---
Notified by staff, JOSE MIGUEL visited with pt this morning.
--- NOTE | 2021-05-13 12:18 | NUR ---
Patient sitting up in bed, conversing with a friend at the bedside. He staties that he is doing okay and has no needs at this time.
--- NOTE | 2021-05-13 15:52 | NUR ---
Patient ambulated one lap in the morales, now he is completing his shower. Bed linens changed, new SCDs placed along with new gown and socks.
--- NOTE | 2021-05-13 17:05 | NUR ---
PT CALL LIGHT ON. PT REQUESTS A TOWEL. PT BACK TO BED, INDEPENDANTLY. TOWEL PROVIDED. PT REPORTS 7/10 PAIN AND REQEUSTS PAIN MEDICATION. PT REPORTS THAT PAIN MEDICATION GIVEN THIS MORNING "DIDN'T REALLY HELP." DOES OF 2 TABLETS GIVEN AT THIS TIME. PT ENCORUAGED TO GET UP TO CHAIR FOR DINNER. STAND BY ASSIST UP TO CHAIR. IV ASSESSED, WNL. MEDICATION GIVEN. LINENS CHANGED PT NOTED TO HAVE SPILLED SODA POP ON HIS LINENS. PT REMAINS UP TO CHAIR. HICUPS NOTED. PTS PRIMARY RN UPDATED AND TO BEDSIDE. NO ADDITIONAL REQUESTS OR COMPLAINTS. CALL LIGHT WITHIN REACH.
--- NOTE | 2021-05-13 17:15 | NUR ---
Patient's 1700 IV antiotics started, PO pain medication given. Patient assisted to the chair for dinner.
--- NOTE | 2021-05-13 17:45 | NUR ---
PT CALL LIGHT ON. PT REQUESTS ADDITONAL PAIN MEDICATION. PT ADVISED THAT HE JUST RECENTLY TOOK HIS PAIN PILLS. PT DOES NOT RECALL TAKING MEDICATION. STAND BY ASSIST FROM CHAIR BACK TO BED. PT ENCORUAGED TO REST AND ALLOW PAIN MEDICAITON TO TAKE EFFECT. PTS PRIMARY CARE RN, ASHLEY, UPDATED AND TO BEDSIDE TO FURTHER EVALUATE PTS PAIN LEVEL AND POSSIBLE INTERVENTIONS. BED RAILS UP. CALL LIGHT WITHIN REACH.
--- NOTE | 2021-05-13 19:30 | NUR ---
SHIFT REPORT RECEIVED FROM DAYSVAFT PATEL BAXTER AT BEDSIDE. pt RESTING IN BED WITH EYES CLOSED, RR EVEN AND UNLABORED. NO DISTRESS NOTED, pt AWOKE TO VOICE. SPOKE BRIEFLY ON PHONE WITH FAMILY. IV FLUIDS AND IV ABX INFUSING DIRECTED, SCANT REDDNESS NOTED ABOVE IV SITE, pt WAS FOUND RESTING ON IV SITE/ARM. WILL MONITOR. pt DENIES PAIN AT IV SITE. SCD'S REMOVED TO ALLOW A BREAK, +2 GENERALIXED PITTING EDEMA NOTED IN BLE, pt VERBALIZES BLE APPEARANCE ARE HIS "NORMAL". BLE ELEVATED WITH PILLOWS IN BED. NO FURTHER NEEDS, CALL LIGHT IN REACH.
--- NOTE | 2021-05-13 20:00 | NUR ---
assessment complete, iv site red and pt reports some tenderness when palpated. no edema noted, iv site stopped. ice pack provided. iv dc'd by keny louis and new iv, 20g placed by keny louis. brisk blood return noted. iv site wnl, iv abx and iv fluids resumed. abd midline incision wnl, well approximated. no s/sx of infection noted. sergey drain to right quadrant wnl, sutured and secured to pt gown. scant serosanguineous output noted. pt reports tolerable 5-6/10 pain, denies nausea. ble remains elevated in bed. no further needs, call light in reach. vss, i&o's complete.
--- NOTE | 2021-05-13 22:45 | NUR ---
pt RESTING IN BED WITH EYES CLOSED, RR EVEN AND UNLABORED. NO DISTRESS NOTED. IV SITE REMAINS WNL, FLUIDS CONTINUE TO INFUSE DIRECTED. CALL LIGHT IN REACH.
--- NOTE | 2021-05-13 23:54 | NUR ---
pt CONTINUES TO REST IN BED, EYES CLOSED AND RR EVEN AND UNLABORED. NO DISTRESS NOTED. BLE REMAINS ELEVATED IN BED. IV SITE CONTINUES TO INFUSE DIRECTED, IV SITE WNL. CALL LIGHT IN REACH. WILL CONTINUE TO MONITOR FOR CHANGES.
--- NOTE | 2021-05-14 01:30 | NUR ---
scheduled iv abx, po carafate, and prn pain medication given at this time, see emar. pt reports 5-6/10 pain in abd. pt assisted with reositioning in bed, pillow under right hip. ble remains elevated, scd's on. weak equal pedal pulses noted, ble cap refill delayed and toes reddened along with fingertips, pt reports that this is his baseline and is "normal for him". pt denies numbness and tingling in extremities x4. iv site remians wnl, fluids and iv abx infusing as directed. urinal emptied and call light in reach. pt questions on visitors policy and asks if pt can meet 10 year old son out frnt of hospital today on dayshift because son is unable to visit d/t current age. discussed with gas charger, will discuss further with either pulp house supervisor or supervisor porcelain department.
--- NOTE | 2021-05-14 03:34 | NUR ---
pt RESTING IN BED WITH EYES CLOSED. RR EVEN AND UNLABORED, NO DISTRESS NOTED. ON RA. IV SITE REMAINS WNL, IV FLUIDS AND IV ABX INFUSING DIRECTED. CALL LIGHT REMAINS IN REACH OF pt.
--- NOTE | 2021-05-14 04:10 | NUR ---
IV PUMP ALARMING, ISSUE RESOLVED. IV SITE WNL. CALL LIGHT IN REACH.
--- NOTE | 2021-05-14 05:50 | NUR ---
dr rodriguez in room with pt. dr rodriguez provided with overall pt update this shift.
--- NOTE | 2021-05-14 06:31 | NUR ---
VSS, I&O'S COMPLETE. FRESH WATER PROVIDED. HARDBOARD PRESS OPERATOR RAH IN ROOM AND VISITING WITH pt AND ANSWERING pt QUESTIONS REGARDING VISITATION POLICY. pt CALM AND RELAXED AND CURRENTLY RESTING IN BED. IV SITE REMAINS WNL. CALL LIGHT REMAINS IN REACH OF pt.
--- NOTE | 2021-05-14 06:37 | NUR ---
8MLS SEROSANGUINEOUS OUTPUT COLLECTED FROM JR DRAIN.
--- NOTE | 2021-05-14 07:27 | NUR ---
report recieved from antony ely RN pt resting in bed awake and alert, upgrading diet to soft per dr rodriguez, no needs at the moment call light within reach.
--- NOTE | 2021-05-14 08:30 | NUR ---
rn in room to do morning assessment and medications pt awake and alert complaining of 6/10, prn medications given, started on soft diet, tolerating well. no nausea or pain.
--- NOTE | 2021-05-14 10:30 | NUR ---
Spoke with pt. [id number] he is feeling better. Mom is in the room. Pt states he was able to speak with the people I spoke with him about yesterday (JOSE MIGUEL). We did not discuss farther as I am not sure what info mom is aware of. Pt states he is feeling better today. Pt also looks better today.
--- NOTE | 2021-05-14 11:54 | NUR ---
rn in rounding on pt, sitting up in bed eating lunch, visitors at bedside denies any needs at the moment
--- NOTE | 2021-05-14 12:54 | NUR ---
RN in room to ask pt if he would ambultate in the halls, pt stated he would get up later, encouraged pt to try and increase activity
--- NOTE | 2021-05-14 14:30 | NUR ---
rn in room to do afternoon assessment, pt awake and alert, pain 6/10 prn medications given, pt agrees to do 2laps around unit, passing gas no bowel movement
--- NOTE | 2021-05-14 18:41 | NUR ---
RN in room to do vitals and I&Os, pt awake and alert denies pain at the moment tolerated diet, no nausea, sitting up in the chair reading
--- NOTE | 2021-05-14 19:15 | NUR ---
SHIFT REPORT RECEIVED FROM CONSTANTINE SWEENEY. PT UP IN CHAIR, TALKING ON PHONE. CALL LIGHT IN REACH.
--- NOTE | 2021-05-14 21:38 | NUR ---
ASSESSMENT, VS AND I&O COMPLETED. GCS 15, A&O X4. LUNGS CLEAR, HEART TONES REGUALR. ABD SOFT, MILDLY DISTENDED, BOWEL TONES ACTIVE, TENDER. PT REPORTS FLATUS. PRN PAIN MED PROVIDED FOR 5/10 ABD PAIN. MIDLINE INCISION WNL, JAMES. JR SITE WNL, JAMES, NO OUTPUT. CMS INTACT. GENERALIZED EDEMA IN ARMS AND SCROTUM. 1+ EDEMA IN BLE AND TRACE IN THIGHS. SCHEDULED MEDS PROVIDED. WATER, PUDDING AND WARM BLANKETS PROVIDED. IV WNL, IV FLUIDS INFUSING PER ORDER. NO OTHER NEEDS. CALL LIGHT IN REACH.
--- NOTE | 2021-05-14 23:00 | NUR ---
PT UP IN CHAIR, WATCHING TV. IV FLUIDS INFUSING PER ORDER. NO NEEDS AT THIS TIME. CALL LIGHT IN REACH.
--- NOTE | 2021-05-15 00:06 | NUR ---
PT UP IN CHAIR, WATCHING TV. IV FLUIDS INFUSING PER ORDER. NO NEEDS AT THIS TIME. CALL LIGHT IN REACH.
--- NOTE | 2021-05-15 02:00 | NUR ---
ASSESSMENT COMPLETED. SCHEDULED MED PROVIDED. IV WNL, CDI, FLUSHED WELL. EDEMA UNCHANGED. PT DENIES PAIN AND NAUSEA AT THIS TIME. PT TOLERATED SNACKS WELL. PT SBA TO BED. SCDs ON. NO OTHER NEEDS. CALL LIGHT IN REACH.
--- NOTE | 2021-05-15 04:15 | NUR ---
PT RESTING IN BED, EYES CLOSED. RR EVEN, UNLABORED. CALL LIGHT IN REACH.
--- NOTE | 2021-05-15 04:43 | NUR ---
IV PUMP ALARMING, RESOLVED. CALL LIGHT IN REACH.
--- NOTE | 2021-05-15 06:53 | NUR ---
SCHEDULED MED PROVIDED. NO OTHER NEEDS. CALL LIGHT IN REACH.
--- NOTE | 2021-05-15 07:37 | NUR ---
REPORT RECEIVED FROM NIGHT RN - PT SITTING UP IN BED WATCHING TV. CALL LIGHT AND BEDSIDE TABLE IN REACH. BREAKFAST DELIVERED DURING. PT DENIES FURTHER NEEDS AT THIS TIME.
--- NOTE | 2021-05-15 08:48 | NUR ---
rn in room with DR michael JP drain on RLQ removed by provider
[2021-05-15] MEDS ORDERED: BACTRIM DS TAB1 EACH PO (09:51)
[2021-05-15] MEDS ORDERED: DIFLUCAN200 MG PO (09:52)
[2021-05-15] MEDS ORDERED: CARAFATE1 GM PO ×2 (09:58→10:02)
[2021-05-15] MEDS ORDERED: PROTONIX40 MG PO ×2 (09:59→10:02)
[2021-05-15] MEDS ORDERED: PERCOCET 7.5-31 EACH PO (10:03)
[2021-05-15] MEDS ORDERED: SENNA-S 8.6-501 EACH PO (10:04)
[2021-05-15] MEDS ORDERED: MIRALAX119 GM PO (10:05)
[2021-05-15] MEDS ORDERED: DULCOLAX5 MG PO (10:06)
--- NOTE | 2021-05-15 11:31 | NUR ---
RN IN ROOM TO ADMINISTER MEDS. PT RESTING IN BED WITH EYES CLOSED UPON ENTRANCE. PT WAKES EASILY BUT APPEARS DROWSY. RATES PAIN 4/10 AT ABDOMEN BUT DENIES PAIN MEDS AT THIS TIME. PT AMBULATED UP TO BATHROOM STANDBY ASSIST, STEADY ON FEET.
--- NOTE | 2021-05-15 11:49 | NUR ---
PT BACK TO BED FROM BATHROOM. SMALL FORMED SOFT BM PRODUCED. PT STATES HE IS MORE NAUSEOUS NOW. DENIES NEED FOR PAIN AND NAUSEA MEDS. PT DIAPHORETIC - HR REGULAR, BOWEL SOUNDS ACTIVE X4. BEDSIDE TABLE AND CALL LIGHT IN REACH.
--- NOTE | 2021-05-15 12:10 | NUR ---
pt complaining of 7/10 abd pain, requesting pain medications prn medications provided
--- NOTE | 2021-05-15 13:19 | NUR ---
IV DC'D - CATH INTACT. PT BELONGINGS GATHERED, RX SENT WITH BROTHER WHO IS DRIVING PT HOME. PT STATES UNDERSTANDING OF DISCHARGE EDUCATION. VS STABLE. TAKEN BY WHEELCHAIR TO FRONT BY RN.
== END 2021-05-15 13:02 | disposition home or self-care (01) | DRG 326 ==
LOC: ED 10:15 → CCU 15:55 → MS 15:55 → ED 15:55 → CCU 05-09 14:00 → ED 05-09 14:39 → MS 05-09 14:39
PROVIDERS: ADMIT Surgery; ATTEND Surgery
PROC: 0DU907Z Supplement Duodenum with Autologous Tissue Substitute, Open Approach (ICD-10-PCS; 2021-05-07)
PROC: 0W9H00Z Drainage of Retroperitoneum with Drainage Device, Open Approach (ICD-10-PCS; 2021-05-07)
PROC: 0DU707Z Supplement Stomach, Pylorus with Autologous Tissue Substitute, Open Approach (ICD-10-PCS; principal; 2021-05-07 16:57)
DX: K26.5 Chronic or unspecified duodenal ulcer with perforation (principal); K68.19 Other retroperitoneal abscess; Z20.822 Contact with and (suspected) exposure to COVID-19; K25.5 Chronic or unspecified gastric ulcer with perforation; F15.10 Other stimulant abuse, uncomplicated; K21.9 Gastro-esophageal reflux disease without esophagitis; Z79.899 Other long term (current) drug therapy
CPT/HCPCS: 00790; 36415; 71045; 74018; 74177; 76942; 80048; 80053; 81001; 83690; 83735; 84100; 84484; 85025; 87070; 87075; 87205; 93005; 93010; 96375; 96376; 99285-25; C9113; C9803; J0131; J0330; J0694; J1100; J1170; J1450; J1644; J1885; J2001; J2185; J2250; J2270; J2370; J2405; J2704; J2795; J3475; J7030; J7121; Q9967; U0003

== ENCOUNTER 2021-07-11 16:44 | Emergency (ER) | payer OTHER ==
[~2021-07-11] VITALS: Ht 180.3 cm; Wt 77.3 kg
[~2021-07-11 16:44] MED LIST changes: +BACTRIM DS TAB1 EACH PO; +CARAFATE1 GM PO; +DIFLUCAN200 MG PO; +DULCOLAX5 MG PO; +MIRALAX119 GM PO; +OMEPRAZOLE20 MG PO; +ONDANSETRON ODT4 MG PO; +PERCOCET 7.5-31 EACH PO; +PROTONIX40 MG PO; +SENNA-S 8.6-501 EACH PO
--- OUTSIDE RECORDS SUMMARY | 2021-07-11 16:46 | XMS ---
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 [facility] (12 MO.) [facility] 2 [facility] 3 [facility] TOTAL 7 NOTE: Visits indicate total known visits. ED/UCC VISIT TRACKING (12 MO.) 07/11/2021 16:45 [facility] [place] TYPE: Emergency COMPLAINT: - MULTIPLE COMPLAINTS 05/04/2021 21:56 [facility] TYPE: Emergency DIAGNOSES: 61807. Vomiting . Unspecified abdominal pain . Nausea with vomiting, unspecified 05/03/2021 02:42 [facility] [place] TYPE: Emergency DIAGNOSES: - Nausea with vomiting, unspecified - VOMITING - VOMITTING [facility] [place] [place] [facility] DIAGNOSES: - nausea, vomiting, chills - Emesis - Pain, unspecified - Chills 02/02/2021 05:27 [facility] [place] TYPE: Emergency COMPLAINT: - EAR ACHE DIAGNOSES: - Otalgia, left ear - Unspecified otitis externa, left ear - Gastro-esophageal reflux disease without esophagitis - Otitis media, unspecified, left ear - Nicotine dependence, unspecified, uncomplicated 11[facility]2020 [facility] DIAGNOSES: - Unilateral inguinal hernia, without obstruction or gangrene, recurrent - groin pain - Gastro-esophageal reflux disease without esophagitis 09/01/2020 21:06 [facility] [place] TYPE: Emergency COMPLAINT: - EAR PAIN DIAGNOSES: - Gastro-esophageal reflux disease without esophagitis - Nicotine dependence, unspecified, uncomplicated - Otalgia, left ear - Suppurative otitis media, unspecified, left ear INPATIENT VISIT TRACKING (12 MO.) 05/07/2021 15:55 [facility] [place] TYPE: [facility] COMPLAINT: - PERFORATED DUODENAL ULCER DIAGNOSES: - Other stimulant abuse, uncomplicated - Other retroperitoneal abscess - Other stimulant abuse, uncomplicated - Gastro-esophageal reflux disease without esophagitis - Other penitentiary (current) drug therapy - Chronic or unspecified gastric ulcer with perforation - Chronic or unspecified gastric ulcer with perforation - Other retroperitoneal abscess - Chronic or unspecified duodenal ulcer with perforation - Contact with and (suspected) exposure to COVID-19 - Other penitentiary (current) drug therapy - Gastro-esophageal reflux disease without esophagitis [email or web address]
[2021-07-11] MEDS ORDERED: ONDANSETRON ODT8 MG PO (22:19)
--- NOTE | 2021-07-11 22:57 | EKG ---
[facility] [address] [facility] [place] [address] Signed Normal sinus rhythm Septal infarct , age undetermined Abnormal ECG When compared with ECG of 07-MAY-2021 10:16, Septal infarct is now present ST no longer depressed in Inferior leads Nonspecific T wave abnormality now evident in Anterolateral leads Confirmed by MAE LOVING MD ([id number]) on 07/11/2021 10:57:12 PM Electronically Signed By: MAE LOVING MD 07/11/21 2257 PATIENT NAME: ANDREIA ALMANZAR Electrocardiogram DATE OF : 63 PHYSICIAN: MAE LOVING MD REPORT #: [id number] REPORT IS CONFIDENTIAL AND NOT TO BE RELEASED WITHOUT AUTHORIZATION
== END 2021-07-11 22:32 | disposition home or self-care (01) ==
LOC: ED 16:44
DX: K52.9 Noninfective gastroenteritis and colitis, unspecified (principal); F15.10 Other stimulant abuse, uncomplicated; Z20.822 Contact with and (suspected) exposure to COVID-19
CPT/HCPCS: 36415; 71045; 80053; 81001; 83690; 83735; 85025; 87502; 93005; 93010; 96361; 96374; 99284-25; A9270; C9803; G0480; J2405; J7030; U0003

== ENCOUNTER 2021-08-31 11:57 | Emergency (ER) | payer OTHER ==
[~2021-08-31] VITALS: Ht 180.3 cm; Wt 81.6 kg
[~2021-08-31 11:57] MED LIST changes: +LASIX20 MG PO; +MINOCYCLINE HC100 M1 PO; +MIRALAX17 GM PO; +PANTOPRAZOLE SO40 MG PO; +SENEXON-S 50-81 EACH PO
--- OUTSIDE RECORDS SUMMARY | 2021-08-31 12:00 | XMS ---
PreManage Notification: ANDREIA ALMANZAR Security Radio Time Buyer Events No recent Security Events currently on file CRITERIA MET - Group Notification [facility]: Unknown Lorri has no Care Guidelines for this patient. E.Clarice VISIT COUNT (12 MO.) 1 [facility] 1 [facility] [place] 2 [facility] TOTAL 8 NOTE: Visits indicate total known visits. ED/UCC VISIT TRACKING (12 MO.) 08/31/2021 11:58 [facility] [place] TYPE: Emergency COMPLAINT: - R LEG WOUND 07/11/2021 16:45 [place] [place] TYPE: Emergency COMPLAINT: - MULTIPLE COMPLAINTS DIAGNOSES: - Other stimulant abuse, uncomplicated - Nausea with vomiting, unspecified - Noninfective gastroenteritis and colitis, unspecified - Contact with and (suspected) exposure to COVID-19 05/04/2021 21:56 [facility] TYPE: Emergency DIAGNOSES: 89975. Vomiting . Unspecified abdominal pain . Nausea with vomiting, unspecified 05/03/2021 02:42 [facility] [place] TYPE: Emergency DIAGNOSES: - Nausea with vomiting, unspecified - VOMITING - VOMITTING 05/01/2021 15:03 [facility] [place] TYPE: Emergency DIAGNOSES: - nausea, vomiting, chills - Emesis - Pain, unspecified - Chills 02/02/2021 05:27 [facility] [place] [facility]: [facility] COMPLAINT: - EAR ACHE DIAGNOSES: - Otalgia, left ear - Unspecified otitis externa, left ear - Gastro-esophageal reflux disease without esophagitis - Otitis media, unspecified, left ear - Nicotine dependence, unspecified, uncomplicated 11/04/2020 13:45 [facility]: [facility] DIAGNOSES: - [...] Gastro-esophageal reflux disease without esophagitis - 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
[2021-08-31] MEDS ORDERED: BACTRIM DS TAB1 EACH PO (13:55)
== END 2021-08-31 15:27 | disposition home or self-care (01) ==
LOC: ED 11:57
DX: L03.115 Cellulitis of right lower limb (principal); K21.9 Gastro-esophageal reflux disease without esophagitis; F17.200 Nicotine dependence, unspecified, uncomplicated; Z79.899 Other long term (current) drug therapy
CPT/HCPCS: 99283; A9270

== ENCOUNTER 2021-12-17 18:43 | Emergency (ER) | payer OTHER ==
[~2021-12-17] VITALS: Ht 180.3 cm; Wt 83.5 kg
--- OUTSIDE RECORDS SUMMARY | 2021-12-17 18:46 | XMS ---
PreManage Notification: ANDREIA ALMANZAR Security Radiologic Tech Events No recent Security Events currently on file CRITERIA MET - Group Notification [facility] PROVID[facility]: Unknown Lorri has no Care Guidelines for this patient. E.Clarice VISIT COUNT (12 MO.) 1 [facility] 1 [facility] [place] 1 [facility] TOTAL 7 NOTE: Visits indicate total known visits. ED/UCC VISIT TRACKING (12 MO.) 12/17/2021 18:44 [facility] [place] TYPE: Emergency COMPLAINT: - OPEN WOUND ON BODY, 10 08/31/2021 11:58 [facility] [place] TYPE: Emergency COMPLAINT: - R LEG WOUND DIAGNOSES: - Cellulitis of right lower limb - Nicotine dependence, unspecified, uncomplicated - Gastro-esophageal reflux disease without esophagitis - Other director of group counseling program (current) drug therapy 07/11/2021 16:45 [facility] [place] TYPE: Emergency COMPLAINT: - MULTIPLE COMPLAINTS DIAGNOSES: - Other stimulant abuse, uncomplicated - Contact with and (suspected) exposure to COVID-19 - Nausea with vomiting, unspecified - Noninfective gastroenteritis and colitis, unspecified 05/04/2021 21:56 [facility] TYPE: Emergency DIAGNOSES: 02161. Vomiting 71815. Unspecified abdominal pain 36018. Nausea with vomiting, unspecified 05/03/2021 02:42 [facility] TYPE: Emergency DIAGNOSES: - Nausea with vomiting, unspecified - VOMITING - VOMITTING 05/01/2021 15:03 [facility] [place] TYPE: Emergency DIAGNOSES: - nausea, vomiting, chills - Chills - Emesis - Pain, unspecified 02/02/2021 05:27 [facility] [place] [facility]: [facility] COMPLAINT: - EAR ACHE DIAGNOSES: - Otalgia, left ear - Otitis media, unspecified, left ear - Unspecified otitis externa, left ear - Nicotine dependence, unspecified, uncomplicated - Gastro-esophageal reflux disease without esophagitis INPATIENT VISIT TRACKING (12 MO.) 05/07/2021 15:55 [facility] [place] TYPE: Medical Surgical COMPLAINT: - PERFORATED DUODENAL ULCER DIAGNOSES: - Contact with and (suspected) exposure to COVID-19 - Other stimulant abuse, uncomplicated - Other retroperitoneal abscess - Chronic or unspecified gastric ulcer with perforation - Gastro-esophageal reflux disease without esophagitis - Other director of group counseling program (current) drug therapy - Other retroperitoneal abscess - Chronic or unspecified duodenal ulcer with perforation - Chronic or unspecified gastric ulcer with perforation - Other longterm (current) drug therapy - Gastro-esophageal reflux disease without esophagitis - Other stimulant abuse, uncomplicated [email or web address]
[2021-12-17] MEDS ORDERED: DOXYCYCLINE HY100 MG PO (22:43)
== END 2021-12-17 23:01 | disposition home or self-care (01) ==
LOC: ED 18:43
DX: L02.414 Cutaneous abscess of left upper limb (principal); L02.413 Cutaneous abscess of right upper limb; K21.9 Gastro-esophageal reflux disease without esophagitis; F17.200 Nicotine dependence, unspecified, uncomplicated
CPT/HCPCS: 99283; A9270

== ENCOUNTER 2022-02-06 14:31 | Emergency (ER) | payer OTHER ==
[~2022-02-06] VITALS: Ht 180.3 cm; Wt 81.7 kg
[~2022-02-06 14:31] MED LIST changes: +DOXYCYCLINE HY100 MG PO
--- OUTSIDE RECORDS SUMMARY | 2022-02-06 14:34 | XMS ---
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 E.Clarice VISIT COUNT (12 MO.) 1 [facility] 1 [facility] [place] 1 [facility] TOTAL 7 NOTE: Visits indicate total known visits. ED/UCC VISIT TRACKING (12 MO.) 02/06/2022 14:32 [facility] [place] TYPE: Emergency COMPLAINT: - HEADACHE 12/17/2021 18:44 [facility] [place] TYPE: Emergency COMPLAINT: - WOUND CHECK DIAGNOSES: - Cutaneous abscess of left upper limb - Cutaneous abscess of right upper limb - Gastro-esophageal reflux disease without esophagitis - Nicotine dependence, unspecified, uncomplicated 08/31/2021 11:58 [facility] [place] TYPE: Emergency COMPLAINT: - R LEG WOUND DIAGNOSES: - Nicotine dependence, unspecified, uncomplicated - Gastro-esophageal reflux disease without esophagitis - Other shelter (current) drug therapy - Cellulitis of right lower limb 07/11/2021 16:45 [facility] [place] TYPE: Emergency COMPLAINT: - MULTIPLE COMPLAINTS DIAGNOSES: - Contact with and (suspected) exposure to COVID-19 - Nausea with vomiting, unspecified - Noninfective gastroenteritis and colitis, unspecified - Other stimulant abuse, uncomplicated 05/04/2021 21:56 [facility] TYPE: Emergency DIAGNOSES: 41121. Vomiting 86571. Nausea with vomiting, unspecified 35820. Unspecified abdominal pain 05/03/2021 02:42 [facility] [place] TYPE: Emergency DIAGNOSES: - VOMITING - VOMITTING - Nausea with vomiting, unspecified 05/01/2021 15:03 [facility] [place] TYPE: Emergency DIAGNOSES: - Chills - Emesis - Pain, unspecified - nausea, vomiting, chills INPATIENT VISIT TRACKING (12 MO.) 05/07/2021 15:[address] 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
== END 2022-02-06 19:45 | disposition home or self-care (01) ==
LOC: ED 14:31
DX: R51.9 Headache, unspecified (principal); F43.21 Adjustment disorder with depressed mood; K21.9 Gastro-esophageal reflux disease without esophagitis; F17.200 Nicotine dependence, unspecified, uncomplicated
CPT/HCPCS: 36415; 80053; 85025; 99284; A9270; J7030

== ENCOUNTER 2023-08-28 09:53 | Emergency (ER) | payer OTHER ==
[~2023-08-28] VITALS: Ht 180.3 cm; Wt 74.0 kg
[~2023-08-28 09:53] MED LIST changes: +DOCUSATE SODIU100 MG PO; +NICOTINE GUM2 MG MT; +OXYCODONE HCL10 MG PO
--- OUTSIDE RECORDS SUMMARY | 2023-08-28 09:54 | XMS ---
PreManage Notification: ANDREIA ALMANZAR Security Healthcare Administrative Assistant Events No recent Security Events currently on file CRITERIA MET - Group Notification CARE PROVIDERS -, [facility] Dentist: Energy Project Engineer [facility] PHONE: [phone] -Noemy- Dentist: Energy Project Engineer [facility] PHONE: [phone] BUSTER [facility] Selam KAHN PHONE: Unknown NOEMY PRIMARY Clinic/Center: Primary Care [facility] PHONE: [phone] Lorri has no Care Guidelines for this patient. [place] VISIT COUNT (12 MO.) 3 LAZ[facility] TOTAL 3 NOTE: Visits indicate total known visits. ED/UCC VISIT TRACKING (12 MO.) 08/28/2023 09:53 [facility] [place] TYPE: Emergency COMPLAINT: - ABDOMINAL PAIN 05/12/2023 16:20 [facility] [place] TYPE: Emergency COMPLAINT: - CHEST PRESSURE DIAGNOSES: - Epigastric pain - Esophagitis, unspecified without bleeding - Nicotine dependence, cigarettes, uncomplicated - Other technician terminal and repeater (current) drug therapy 05/04/2023 06:59 [facility] [place] TYPE: Emergency COMPLAINT: - POST SURGERY PAIN DIAGNOSES: - Gastro-esophageal reflux disease without esophagitis - Left lower quadrant pain - Nicotine dependence, unspecified, uncomplicated - Other acute postprocedural pain - Other technician terminal and repeater (current) drug therapy - Personal history of other diseases of male genital organs - Personal history of other diseases of the digestive system - Personal history of peptic ulcer disease INPATIENT VISIT TRACKING (12 MO.) No inpatient visits to display in this time frame [email or web address]
[2023-08-28] MEDS ORDERED: SODIUM CHLORIDE 0.9% 500 ML IV ONE (10:15)
[2023-08-28] MEDS ORDERED: ondansetron HCL 4 MG/2 ML VIAL IV ONE (10:15)
[2023-08-28 10:44] LABS: BASOPHILS 0.2 % (0-2); EOSINOPHILS 0.1 % (0-6); HEMATOCRIT 47.6 % (35.0-50.0); HEMOGLOBIN 16.3 g/dL (12.0-18.0); LYMPHOCYTES 8.3 % (24-44); MCH 32.6 (27-36); MCHC 34.3 g/dl (30-36); MONOCYTES 5.3 % (0-12); NEUTROPHILS 86.1 % (39-80); PLATELET COUNT 400 K/uL (140-440); RBC 5.01 M/ul (4.3-5.7); RDW 13.7 (10.5-15.0)
[2023-08-28 11:01] LABS: ALBUMIN 3.2 g/dL (3.4-5.0); ALBUMIN/GLOBULIN RATIO 0.64 (1.1-2.4); ANION GAP 10.6 (7-21); BILIRUBIN, TOTAL 0.5 ng/dL (0.2-1.0); BUN/CREATININE RATIO 13.46 (6.0-28.6); CALCIUM 9.2 mg/dL (8.5-10.1); CREATININE, SERUM 1.04 mg/dL (0.70-1.30); MAGNESIUM 1.8 mg/dL (1.8-2.4); POTASSIUM 4.6 mmol/L (3.5-5.1); PROTEIN, TOTAL 8.2 g/dL (6.4-8.2)
[2023-08-28 12:23] LABS: BILIRUBIN, URINE POSITIVE (negative); BLOOD/HGB, URINE TRACE-I (Negative); KETONE, URINE SMALL (Negative); LEUK ESTERASE, URINE NEGATIVE (negative); NITRITE, URINE NEGATIVE (negative); PH, URINE 7.5 (5-7)
[2023-08-28 12:32] LABS: BACTERIA, URINE NONE SEEN /hpf (negative); CASTS, URINE NONE SEEN \\lpf; COLLECTION TYPE, URINE CLEAN CATCH; CRYSTALS, URINE NONE SEEN (0-1+); EPITHELIAL CELLS, URINE SQUAMOUS 1+ /lpf (0-1+); REFLEX CULTURE, URINE No (No); WHITE BLOOD CELLS, URINE 0-1 /HPF (0-5)
[2023-08-28] MEDS ORDERED: METOCLOPRAMIDE HCL 10 MG/2 ML SDV IV ONE (13:00)
[2023-08-28] MEDS ORDERED: SODIUM CHLORIDE 0.9% 1,000 ML IV PRN (13:00)
[2023-08-28] MEDS ORDERED: ONDANSETRON ODT4 MG PO (14:14)
[2023-08-28 14:32] VITALS: BP 170/101
[2023-08-29] MEDS ORDERED: PROTONIX40 MG PO (07:17)
[2023-08-29] MEDS ORDERED: CARAFATE1 GM PO (07:17)
== END 2023-08-28 14:34 | disposition home or self-care (01) ==
LOC: ED 09:53
PROVIDERS: Emergency Medicine
DX: K52.9 Noninfective gastroenteritis and colitis, unspecified (principal); F17.200 Nicotine dependence, unspecified, uncomplicated
CPT/HCPCS: 36415; 80053; 81001; 83690; 83735; 85025; J2405; J2765; J7030; J7040

== ENCOUNTER 2023-08-29 06:12 | Emergency (ER) | payer OTHER ==
[~2023-08-29] VITALS: Ht 180.3 cm; Wt 75.3 kg
--- NOTE | ~2023-08-29 | EKG ---
[facility] [address] [facility] [place], [place] [address] Draft EK completed, results pending confirmation PATIENT NAME: JENELLEANDREIA WELLS Electrocardiogram DATE OF : 63 PHYSICIAN: PRELIMINARY REPORT #: [id number] REPORT IS CONFIDENTIAL AND NOT TO BE RELEASED WITHOUT AUTHORIZATION
--- OUTSIDE RECORDS SUMMARY | 2023-08-29 06:17 | XMS ---
PreManage Notification: ANDREIA ALMANZAR Security Banquet Server On Call Events No recent Security Events currently on file CRITERIA MET - Group Notification - [facility] - 2 Visits in 30 Days CARE PROVIDERS -, [facility] Dentist: Head Of Mathematics [facility] PHONE: [phone] -, Noemy- Dentist: Head Of Mathematics [facility] PHONE: [phone] BUSTER [facility] Family [facility] Selam KAHN PHONE: Unknown NOEMY PRIMARY Clinic/Center: Primary Care [facility] PHONE: [phone] Lorri has no Care Guidelines for this patient. [place] VISIT COUNT (12 MO.) 4 LAZARO [place] TOTAL 4 NOTE: Visits indicate total known visits. ED/UCC VISIT TRACKING (12 MO.) 08/29/2023 06:13 [facility] [place] TYPE: Emergency COMPLAINT: - ABDOMINAL PAIN 08/28/2023 09:53 [place] TYPE: Emergency COMPLAINT: - ABDOMINAL PAIN 05/12/2023 16:[address] [facility] [place] TYPE: Emergency COMPLAINT: - CHEST PRESSURE DIAGNOSES: - Epigastric pain - Esophagitis, unspecified without bleeding - Nicotine dependence, cigarettes, uncomplicated - Other shelter (current) drug therapy 05/04/2023 06:[address] [place] TYPE: Emergency COMPLAINT: - POST SURGERY PAIN DIAGNOSES: - Gastro-esophageal reflux disease without esophagitis - Left lower quadrant pain - Nicotine dependence, unspecified, uncomplicated - Other acute postprocedural pain - Other shelter (current) drug therapy - Personal history of other diseases of male genital organs - Personal history of other diseases of the digestive system - Personal history of peptic ulcer disease INPATIENT VISIT TRACKING (12 MO.) No inpatient visits to display in this time frame [id number]
[2023-08-29] MEDS ORDERED: LIDOCAINE & ANTACID 35 ML BTL PO ONE (06:30)
[2023-08-29] MEDS ORDERED: PANTOPRAZOLE SODIUM 40 MG/10 ML VIAL IV ONE (06:30)
[2023-08-29] MEDS ORDERED: LACTATED RINGER'S 1,000 ML IV ONE (06:30)
[2023-08-29] MEDS ORDERED: PROCHLORPERAZINE EDISYLATE 10 MG/2 ML VIAL IV ONE (06:30)
[2023-08-29] MEDS ORDERED: SUCRALFATE 1 GM TAB PO ONE (06:30)
[2023-08-29 06:35] LABS: BASOPHILS 0.4 % (0-2); EOSINOPHILS 0.3 % (0-6); HEMATOCRIT 42.9 % (35.0-50.0); HEMOGLOBIN 14.6 g/dL (12.0-18.0); LYMPHOCYTES 6.2 % (24-44); MCH 32.1 (27-36); MCV 94.4 fl (81-99); MONOCYTES 6.4 % (0-12); NEUTROPHILS 86.7 % (39-80); PLATELET COUNT 405 K/uL (140-440); RBC 4.54 M/ul (4.3-5.7); RDW 13.6 (10.5-15.0)
[2023-08-29 06:46] LABS: INR 1.2 (0.80-1.30); PROTIME 14.5 Sec (11.2-14.2)
[2023-08-29 06:58] LABS: ALBUMIN 2.8 g/dL (3.4-5.0); ALBUMIN/GLOBULIN RATIO 0.58 (1.1-2.4); ANION GAP 9.1 (7-21); BILIRUBIN, TOTAL 0.7 ng/dL (0.2-1.0); CALCIUM 8.4 mg/dL (8.5-10.1); MAGNESIUM 1.9 mg/dL (1.8-2.4); POTASSIUM 4.1 mmol/L (3.5-5.1); PROTEIN, TOTAL 7.6 g/dL (6.4-8.2)
[2023-08-29] MEDS ORDERED: CARAFATE1 GM PO (07:17)
[2023-08-29] MEDS ORDERED: PROTONIX40 MG PO (07:17)
[2023-08-29 08:20] VITALS: BP 167/98
== END 2023-08-29 08:20 | disposition home or self-care (01) ==
LOC: ED 06:12
PROVIDERS: Family Medicine
DX: T45.0X1A Poisoning by antiallergic and antiemetic drugs, accidental (unintentional), initial encounter (principal); R10.13 Epigastric pain; K21.9 Gastro-esophageal reflux disease without esophagitis; F17.200 Nicotine dependence, unspecified, uncomplicated; Z79.899 Other long term (current) drug therapy
CPT/HCPCS: 36415; 80053; 83690; 83735; 84484; 85025; 85610; 93005; 93010; 96374; 96375; 99284-25; C9113; J0780; J7121

== ENCOUNTER 2024-02-15 18:57 | Inpatient (IN) | payer OTHER ==
[~2024-02-15] VITALS: Ht 180.3 cm; Wt 83.0 kg
[~2024-02-15 18:57] MED LIST changes: +AMOX TR-K CLV1 EAC1 PO; +TAMSULOSIN HCL0.4 MG PO; +VANICREAM453 GM TOP
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
[2024-02-15] MEDS ORDERED: IBLOOD GLUCOSE TEST STRIP 1 EA TEST XX ONE (20:00)
[2024-02-15 20:01] LABS: HEMATOCRIT 38.7 % (35.0-50.0); HEMOGLOBIN 12.9 g/dL (12.0-18.0); MCH 31.6 (27-36); MCHC 33.3 g/dl (30-36); MCV 94.8 fl (81-99); PLATELET COUNT 398 K/uL (140-440); RBC 4.08 M/ul (4.3-5.7); RDW 13.5 (10.5-15.0)
[2024-02-15 20:13] LABS: ALBUMIN 2.6 g/dL (3.4-5.0); ALBUMIN/GLOBULIN RATIO 0.51 (1.1-2.4); ANION GAP 12.1 (7-21); BILIRUBIN, TOTAL 0.5 ng/dL (0.2-1.0); BUN/CREATININE RATIO 14.28 (6.0-28.6); CALCIUM 8.3 mg/dL (8.5-10.1); CREATININE, SERUM 1.12 mg/dL (0.70-1.30); MAGNESIUM 1.6 mg/dL (1.8-2.4); POTASSIUM 4.1 mmol/L (3.5-5.1); PROTEIN, TOTAL 7.7 g/dL (6.4-8.2)
[2024-02-15 20:16] LABS: LYMPHOCYTES, MANUAL DIFF 3; MONOCYTES, MANUAL DIFF 2; NEUTROPHILS, MANUAL DIFF 95
[2024-02-15 20:29] LABS: BILIRUBIN, URINE NEGATIVE (negative); BLOOD/HGB, URINE SMALL (Negative); KETONE, URINE NEGATIVE (Negative); LEUK ESTERASE, URINE NEGATIVE (negative); NITRITE, URINE NEGATIVE (negative)
[2024-02-15] MEDS ORDERED: CEFTRIAXONE/SODIUM CHLORIDE 2 GM/100 ML PIGGYBACK IV ONE (20:30)
[2024-02-15] MEDS ORDERED: FAMOTIDINE 20 MG/ 2 ML VIAL IV ONE (20:30)
[2024-02-15] MEDS ORDERED: DAPTOmycin 500 MG/10 ML VIAL IV ONE (20:30)
[2024-02-15] MEDS ORDERED: LACTATED RINGER'S 1,000 ML IV ONE ×2 (20:30→23:15)
[2024-02-15 20:35] LABS: WHITE BLOOD CELLS, URINE 0-1 /HPF (0-5)
[2024-02-15 20:36] LABS: BACTERIA, URINE NONE SEEN /hpf (negative); CASTS, URINE NONE SEEN \\lpf; COLLECTION TYPE, URINE CLEAN CATCH; CRYSTALS, URINE NONE SEEN (0-1+); EPITHELIAL CELLS, URINE NONE SEEN /lpf (0-1+); REFLEX CULTURE, URINE No (No)
[2024-02-15] MEDS ORDERED: MAGNESIUM SULFATE 2 GM/50 ML BAG IV ONE (20:45)
[2024-02-15 20:51] LABS: PARTIAL THROMBOPLASTIN TIME 32.3 Sec (22.9-41.3)
[2024-02-15 20:53] LABS: LACTIC ACID, BLOOD 1.5 mmol/L (0.4-2.0)
[2024-02-15 20:59] LABS: INR 1.21 (0.80-1.30); PROTIME 14.6 Sec (11.2-14.2)
[2024-02-15 21:11] LABS: INFLUENZA B NAA NEGATIVE (NEGATIVE); RESPIRATORY SYNCYTIAL VIR NAA NEGATIVE (NEGATIVE)
[2024-02-15] MEDS ORDERED: ACETAMINOPHEN 500 MG TAB PO ONE (21:45)
[2024-02-15] MEDS ORDERED: LACTATED RINGER'S 1,000 ML IV SCH (22:45)
[2024-02-15] MEDS ORDERED: ACETAMINOPHEN 325 MG TAB PO PRN (22:45)
[2024-02-15] MEDS ORDERED: ondansetron HCL 4 MG/2 ML VIAL IV PRN (22:45)
[2024-02-15] MEDS ORDERED: MORPHINE SULFATE 4 MG/ML VIAL IV PRN (22:45)
[2024-02-15 23:00] LABS: LACTIC ACID, BLOOD 2.2 mmol/L (0.4-2.0)
[2024-02-16] VITALS (8 sets, daily range): BP systolic 102–150; BP diastolic 54–72
--- NOTE | 2024-02-16 01:14 | NUR ---
Pt arrived to the floor via bed, transferred by ED PATEL Cosme. Pt report received from Cee. Pt is A&O x4. Pt denies any pain at this time. 2RN skin assessment performed with PATEL Mike. Lesions noted about pt's arms and LE. RLE is reddened and swollen, warm to the touch. Bilat pedal pulses palpable. SBA with line and tube mgmt as pt ambulates to toilet. Smear of BM noted on chux on bed. Pt voided in urinal. SBA as pt ambulates back to bed. IVF running per emar. IV sites patent, no leaking, no redness or swelling noted, pt has no c/o burning or pain at sites. Side rails up x4, pt oriented to room and call light. Call light in reach.
--- NOTE | 2024-02-16 02:18 | NUR ---
In with pt for hourly rounding. Pt is resting supine with foot of bed elevated, hob slightly elevated. Pt has eyes closed, breathing is regular, even, and non-labored. IVF running at ordered rate.
--- NOTE | 2024-02-16 02:30 | NUR ---
CARE ASSUMED OF PT, REPORT RECEIVED FROM NIKITA SWEENEY.
--- NOTE | 2024-02-16 04:00 | NUR ---
PT CONT TO REST WITH EYES CLOSED, RESP EVEN AND UNLABORED.
--- NOTE | 2024-02-16 05:30 | NUR ---
LAB IN TO DRAW, PT DENIES NEEDS AT THIS TIME. IVF CONT TO INFUSE.
[2024-02-16 05:48] LABS: BASOPHILS 0.1 % (0-2); HEMATOCRIT 38.7 % (35.0-50.0); HEMOGLOBIN 13.2 g/dL (12.0-18.0); LYMPHOCYTES 3.1 % (24-44); MCH 32.4 (27-36); MCHC 34.1 g/dl (30-36); MONOCYTES 2.8 % (0-12); PLATELET COUNT 367 K/uL (140-440); RBC 4.07 M/ul (4.3-5.7); RDW 13.4 (10.5-15.0)
[2024-02-16 06:11] LABS: ALBUMIN 2.2 g/dL (3.4-5.0); ALBUMIN/GLOBULIN RATIO 0.45 (1.1-2.4); ANION GAP 9.8 (7-21); BILIRUBIN, TOTAL 0.4 ng/dL (0.2-1.0); CALCIUM 8.2 mg/dL (8.5-10.1); MAGNESIUM 1.9 mg/dL (1.8-2.4); POTASSIUM 3.8 mmol/L (3.5-5.1); PROTEIN, TOTAL 7.1 g/dL (6.4-8.2)
--- NOTE | 2024-02-16 09:49 | NUR ---
MED REC COMPLETE
--- NOTE | 2024-02-16 10:01 | NUR ---
Patient awake, alert and oriented x3. Patient reports he slept well last night. Legs elevated at this time. Breakfast to patient. IV has brisk blood return, fluids infusing per order. No current needs, personal supplies and call light within reach.
--- NOTE | 2024-02-16 10:05 | NUR ---
Spoke with Marguerite. He has returned with lower extremity edema and sepsis. He cont. to live at his same address. Few steps into the home, no issues for him to get in or out. He has not worked in 12 years and states he does not have an income. He is evasive when I ask how he pays for food and his bills. Pt states he has food stamps. He also states he may lose his housing, but he also said this on his last admission. Pt states his teenage son has moved out and is living with friends. He uses the [facility] and Dr. Anderson is his doc at the [facility]. He uses [facility] transport or his brother drives him. He does not have a phone. 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 He has food stamps and denies needs at this time.
[2024-02-16] MEDS ORDERED: ondansetron HCL 4 MG/2 ML VIAL IV PRN (10:30)
[2024-02-16] MEDS ORDERED: ACETAMINOPHEN 325 MG TAB PO PRN (10:30)
--- NOTE | 2024-02-16 11:23 | NUR ---
VISITED DURING SPIRITUAL CARE ROUNDS. PT APPEARED TO BE SLEEPING. DID NOT DISTURB. PROVIDED PRAYER.
--- NOTE | 2024-02-16 11:59 | NUR ---
[place] CLINICAL [place] [facility] [place] [facility] 02/15/24 @ 2236 ORDER MATCHES REG AUTH PENDING, WILL SEND CLINICALS VIA [employer] DC PLAN PENDING TREATMENT PLAN. 02/18/24
[2024-02-16] MEDS ORDERED: PHARMACY RENAL DOSE ADJUSTMENT 1 DOSE MISC PO SCH (12:00)
--- NOTE | 2024-02-16 15:30 | NUR ---
BATHROOM CALL LIGHT ANSWERED. PATIENT IN BED UPON RN ARRIVAL INTO ROOM. RN CLEARED BATHROOM CALL LIGHT. PATIENT STATED, " SHE TOLD ME TO PULL THAT." rn EDUCATED PATIENT ON SAFETY AND PROPER CALL LIGHT USAGE. PATIENT VERBALIZED UNDERSTANDING OF WAITING TO TRANSFER UNTIL STAFF HAVE ARRIVED INTO THE ROOM. PATIENT BACK IN BED, BED ALARM IN PLACE.
--- NOTE | 2024-02-16 15:59 | NUR ---
Patient resting in bed, no acute distress. Patient easily wakes to verbal stimuli. No current needs.
--- NOTE | 2024-02-16 19:18 | NUR ---
GOT REPORT FROM BUILD AND RELEASE MANAGER NURSE. PATIENT CURRENTLY SITTING UP IN BED ON THE PHONE. DENIES ANY CARES AT THIS TIME. CALL LIGHT WITHIN REACH.
--- NOTE | 2024-02-16 20:41 | NUR ---
IV MEDICATIONS GIVEN. PAIN IS IN CONTROL. RIGHT LEG ELEVATED ON PILLOW. BED ALARM ON. PATIENT HAS WATER AT BEDSIDE. PATIENT RESTING EYES WHEN THIS NURSE IS WALKING OUT WITH TV ON. LIGHTS TURNED DOWN.
[2024-02-16] MEDS ORDERED: CEFTRIAXONE/SODIUM CHLORIDE 2 GM/100 ML PIGGYBACK IV SCH (21:00)
[2024-02-16] MEDS ORDERED: DAPTOmycin 500 MG/10 ML VIAL IV SCH (21:00)
--- NOTE | 2024-02-16 21:32 | NUR ---
DEPARTMENT CHAIR OBTAINED VITALS AND I&O. PT URINAL EMPTIED. PT STATES NO FURTHER NEEDS AT THIS TIME. CALL LIGHT WITHIN REACH.
--- NOTE | 2024-02-16 22:11 | NUR ---
PRN TYLENOL GIVEN FOR REPORTED 5/10 GENERALIZED PAIN-SEE EMAR. WARM BLANKET ALSO PROVIDED PER pt REQUEST.
--- NOTE | 2024-02-16 23:47 | NUR ---
PATIENT CURRENLTY ASLEEP. URINAL DUMPED.
[2024-02-17] VITALS (7 sets, daily range): BP systolic 101–123; BP diastolic 53–65
--- NOTE | 2024-02-17 00:05 | NUR ---
Pt report received from PATEL Reeves
[2024-02-17 05:03] LABS: BASOPHILS 0.3 % (0-2); EOSINOPHILS 1.3 % (0-6); HEMATOCRIT 39.7 % (35.0-50.0); HEMOGLOBIN 13.2 g/dL (12.0-18.0); LYMPHOCYTES 11.1 % (24-44); MCHC 33.2 g/dl (30-36); MCV 96.3 fl (81-99); MONOCYTES 8.1 % (0-12); NEUTROPHILS 79.2 % (39-80); PLATELET COUNT 369 K/uL (140-440); RBC 4.12 M/ul (4.3-5.7); RDW 13.5 (10.5-15.0)
--- NOTE | 2024-02-17 05:06 | NUR ---
rehabilitation tech advised that she was assessing the pt's arm for a site to draw labs when the loose dressing caught and caused the catheter to exit the insertion site a small amount. In with pt to assess IV sites. Dressing on IV in RAC is lifted and seems wet. Catheter protruding from the entry site approximately 1/8 inch. Good blood return, flushes well, no leaking noted. Pt states the area is tender; however, it is not red or swollen, pt denies burning or stinging with flush. New dressing applied. Pt gown is wet, as well as parts of his blanket, and he states he gets very sweaty but declines a fresh gown and blankets, stating that it helps him keep cooler. Will reassess.
[2024-02-17 05:16] LABS: ANION GAP 6.9 (7-21); BUN/CREATININE RATIO 12.63 (6.0-28.6); CALCIUM 8.4 mg/dL (8.5-10.1); CREATININE, SERUM 0.95 mg/dL (0.70-1.30); MAGNESIUM 2.2 mg/dL (1.8-2.4); POTASSIUM 3.9 mmol/L (3.5-5.1)
--- NOTE | 2024-02-17 08:44 | NUR ---
Patient awake, alert and oriented x3, no acute distress. Tylenol 650mg po admin for reports of 5/10 generalized pain. Legs elevated at this time. Patient reports he is hoping to discharge home.
[2024-02-17] MEDS ORDERED: TAMSULOSIN HCL 0.4 MG CAP PO SCH (09:00)
[2024-02-17] MEDS ORDERED: ENOXAPARIN SODIUM 40 MG/0.4 ML SYR SUB-Q SCH (09:00)
[2024-02-17] MEDS ORDERED: POLYETHYLENE GLYCOL 3350 1 PACKET PO ONE (10:00)
--- NOTE | 2024-02-17 10:44 | NUR ---
BROUGHT PATIENT ANOTHER CUP OF COFFEE AND SUGAR THIS MORING DURING HIS BREAKFAST. WE TALKED ABOUT GETTING INTO THE SHOWER TODAY IF HE DOSEN'T GO HOME.
--- NOTE | 2024-02-17 11:37 | EKG ---
[facility] [address] [facility] [place] [address] Signed Normal sinus rhythm Septal infarct (cited on or before 11-JUL-2021) Abnormal ECG When compared with ECG of 15-NOV-2023 09:29, Nonspecific T wave abnormality no longer evident in Inferior leads Confirmed by Jessie Atkinson MD ([id number]) on 02/17/2024 11:37:32 AM Electronically Signed By: JESSIE ATKINSON MD 02/17/24 1137 PATIENT NAME: ANDREIA ALMANZAR Electrocardiogram DATE OF : 63 PHYSICIAN: JESSIE ATKINSON MD REPORT #: [id number] REPORT IS CONFIDENTIAL AND NOT TO BE RELEASED WITHOUT AUTHORIZATION
--- NOTE | 2024-02-17 13:17 | NUR ---
Patient sitting up in bed watching tv, no distress. Patient tolerated lunch well. Legs remains elevated at this time. Patient denies needs, personal supplies and call light within reach.
--- NOTE | 2024-02-17 15:55 | NUR ---
Patient sitting up in bed visiting with family, no distress. Call light within reach.
--- NOTE | 2024-02-17 17:11 | NUR ---
CHECKED ON PATIENT TO SEE IF THERE WAS ANYTHING HE NEEDED AND HE SAID CUP OF COFFEE. HIS VISITORS WERE JUST GETTING READY TO LEAVE.
--- NOTE | 2024-02-17 18:06 | NUR ---
Patient awake in bed eating dinner, tolerating well. Patient reports his pain is tolerable, legs remain elevated. Patient denies needs, personal supplies and call light within reach.
--- NOTE | 2024-02-17 20:20 | NUR ---
VS OBTAINED. PT DECLINED FRESH ICE WATER AT THIS TIME. NO FURTHER NEEDS IDENTIFIED.
[2024-02-17] MEDS ORDERED: MELATONIN 3 MG TAB PO SCH (21:00)
--- NOTE | 2024-02-17 23:08 | NUR ---
AWAKE, NO C/O PAIN. NOTED EARLIER THAT LAC IV SITE WAS NOT IN PLACE, TIP OF IV FOUND IN BED. PT DENIES PULLING IT OUT. NO DRAINAGE NOTED. COOPERATIVE. WATCHNG TV. LE ELEVATED WITH PILLOWS
--- NOTE | 2024-02-18 00:53 | NUR ---
Awake, no c/o pain, turns and repositions in bed. LE no changes from earlier assessment, elevated w pillows. voided, used urinal.
--- NOTE | 2024-02-18 04:19 | NUR ---
resting, eyes closed, no s/sx distress, L leg elevated in pillows
[2024-02-18 05:19] LABS: BASOPHILS 0.2 % (0-2); EOSINOPHILS 1.7 % (0-6); HEMATOCRIT 38.2 % (35.0-50.0); HEMOGLOBIN 13.2 g/dL (12.0-18.0); LYMPHOCYTES 13.5 % (24-44); MCH 32.5 (27-36); MCHC 34.6 g/dl (30-36); MCV 93.8 fl (81-99); MONOCYTES 8.2 % (0-12); NEUTROPHILS 76.4 % (39-80); PLATELET COUNT 421 K/uL (140-440); RBC 4.07 M/ul (4.3-5.7); RDW 13.1 (10.5-15.0)
[2024-02-18 05:28] LABS: ANION GAP 10.8 (7-21); BUN/CREATININE RATIO 12.94 (6.0-28.6); CALCIUM 8.2 mg/dL (8.5-10.1); CREATININE, SERUM 0.85 mg/dL (0.70-1.30); MAGNESIUM 1.9 mg/dL (1.8-2.4); POTASSIUM 3.8 mmol/L (3.5-5.1)
[2024-02-18 05:57] VITALS: BP 109/59
[2024-02-18 05:58] VITALS: BP 109/59
--- NOTE | 2024-02-18 07:28 | NUR ---
RECIEVED BEDSIDE REPORT FROM PATEL MILLER. PT WAS RESTING WITH EYES CLOSED, BUT WOKE TO VOICE. PT REPORTS HE IS FEELING BETTER. REDNESS ON RIGHT LOWER LEG IS RECEEDING, PT HAS LEG ELEVATED.
[2024-02-18] MEDS ORDERED: MAGNESIUM CITRATE 300 ML BTL PO ONE (08:30)
[2024-02-18 08:59] VITALS: BP 104/68
[2024-02-18 13:22] VITALS: BP 122/70
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
[2024-02-18 17:03] VITALS: BP 121/63
[2024-02-18 21:26] VITALS: BP 111/72
--- NOTE | 2024-02-18 21:42 | NUR ---
pt independent in room. On room air, cler lungs, SL LAC patent, scabbed dry areas over arms, le intact. Edema to L leg trace, redness bilat LE. improving almost gone L leg. R leg edema 1+. redness much improving noted anteriorly only, faint pulses bilat but stronger and easier to find than yesterday, elevated w pillows. denies c/o pain. watching tv.
--- NOTE | 2024-02-19 01:40 | NUR ---
Resting, eyes closed, no s/sx ditress, turns and repositions self in bed, R leg elevated w pillows
[2024-02-19 05:08] VITALS: BP 132/75
[2024-02-19 05:09] VITALS: BP 132/75
--- NOTE | 2024-02-19 05:12 | NUR ---
Resting, eyes closed, on room air, no s/sx distress. no c/o pain, awakens easily. cooperative with vitals and lab draws. used urinal.
[2024-02-19 05:23] LABS: BASOPHILS 0.6 % (0-2); HEMATOCRIT 36.3 % (35.0-50.0); HEMOGLOBIN 12.8 g/dL (12.0-18.0); LYMPHOCYTES 22.7 % (24-44); MCH 32.9 (27-36); MCHC 35.2 g/dl (30-36); MCV 93.5 fl (81-99); MONOCYTES 11.8 % (0-12); NEUTROPHILS 61.9 % (39-80); PLATELET COUNT 439 K/uL (140-440); RBC 3.88 M/ul (4.3-5.7); RDW 13.5 (10.5-15.0)
[2024-02-19 05:32] LABS: ANION GAP 10.8 (7-21); BUN/CREATININE RATIO 12.22 (6.0-28.6); CALCIUM 8.2 mg/dL (8.5-10.1); CREATININE, SERUM 0.9 mg/dL (0.70-1.30); MAGNESIUM 1.9 mg/dL (1.8-2.4); POTASSIUM 3.8 mmol/L (3.5-5.1)
--- NOTE | 2024-02-19 07:20 | NUR ---
RECIEVED MORNING REPORT FROM SHIPPING AND RECEIVING ASSISTANT RN. PT LAYING IN BED WITH EYES CLOSED WITH CHEST RISE EQUAL BILAT. PT HAS NO CONCERNS AT THIS TIME CALL LIGHT WITHIN REACH.
--- NOTE | 2024-02-19 08:00 | NUR ---
RECIEEVED MORNING REPORT FROM LUDLOW MACHINE OPERATOR RN. PT LAYING IN BED WITH EYES CLOSED AND CHEST RISE EQUAL BILAT. PT HAS NO CONCERNS AT THIS TIME CALL LIGHT WITHIN REACH.
--- NOTE | 2024-02-19 08:24 | NUR ---
UR CONCURRENT REVIEW: [facility] [place] INPT 02/15/24 @ 2236 ORDER MATCHES REG AUTH PENDING. CLINICALS SENT FOR REVIEW. DC TO HOME WHEN MEDICALLY STABLE. 02/22/24
--- NOTE | 2024-02-19 08:51 | NUR ---
PATIENT IN BED AT THIS TIME. 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 CALL LIGHT WITHIN REACH, NO FURTHER NEEDS AT THIS TIME.
[2024-02-19 09:41] VITALS: BP 125/68
--- NOTE | 2024-02-19 09:41 | NUR ---
PATIENT SITTING UP IN BED WATCHING TV AT THIS TIME. VITALS AND I&O'S DONE AND CHARTED. CALL LIGHT IN REACH. NO FURTHER NEEDS AT THIS TIME.
[2024-02-19] MEDS ORDERED: TAMSULOSIN HCL0.4 MG PO (10:24)
[2024-02-19] MEDS ORDERED: DOXYCYCLINE HY100 MG PO (10:25)
[2024-02-19] MEDS ORDERED: AMOX TR-K CLV1 EAC1 PO (10:26)
--- NOTE | 2024-02-19 10:46 | NUR ---
spoke with Jose M. He plans on dc today after speaking with Dr. Atkinson. He denies needs. A friend will pick him up around 12n. He will make his own appt with Dr. Anderson at the [place] as he is due for his yearly appt. Pt also states he is currently working with a program for a free phone. Home today.
[2024-02-19 11:46] VITALS: BP 127/61
== END 2024-02-19 11:50 | disposition home or self-care (01) | DRG 872 ==
LOC: ED 18:57 → MS 23:21
PROVIDERS: Internal Medicine; ADMIT Student in an Organized Health Care Education/Training Program; ATTEND Student in an Organized Health Care Education/Training Program
DX: A41.9 Sepsis, unspecified organism (principal); L03.115 Cellulitis of right lower limb; E87.20 Acidosis, unspecified; N40.0 Benign prostatic hyperplasia without lower urinary tract symptoms; F15.10 Other stimulant abuse, uncomplicated; M72.9 Fibroblastic disorder, unspecified; Z87.19 Personal history of other diseases of the digestive system; K21.9 Gastro-esophageal reflux disease without esophagitis; F17.210 Nicotine dependence, cigarettes, uncomplicated; Z98.890 Other specified postprocedural states
CPT/HCPCS: 36415; 51701; 71045; 73701; 73706; 80048; 80053; 81001; 82553; 83605; 83735; 83880; 84484; 85025; 85610; 85730; 86140; 87502; 93005; 93010; 93306; 97161; 97165; 99285-25; A9270; J0696; J0878; J1650; J3475; J7121; Q9967; U0002

== ENCOUNTER 2024-07-11 15:23 | Emergency (ER) | payer OTHER ==
[~2024-07-11] VITALS: Ht 180.3 cm; Wt 78.3 kg
--- OUTSIDE RECORDS SUMMARY | 2024-07-11 15:30 | XMS ---
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 E.D. VISIT COUNT (12 MO.) [address] [facility] TOTAL 5 NOTE: Visits indicate total known visits. 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 - Poisoning by antiallergic and antiemetic drugs, accidental (unintentional), initial encounter 08/28/2023 09:53 [facility] [place] TYPE: Emergency COMPLAINT: - ABDOMINAL PAIN DIAGNOSES: - Nausea with vomiting, unspecified - Nicotine dependence, unspecified, uncomplicated - Noninfective gastroenteritis and colitis, unspecified INPATIENT VISIT TRACKING (12 MO.) 02/15/2024 23:21 [facility] [place] TYPE: Medical Surgical COMPLAINT: - CELLULITIS/SEPSIS DIAGNOSES: - Acidosis, unspecified - Acidosis, unspecified - Benign prostatic hyperplasia without lower urinary tract symptoms - Benign prostatic hyperplasia without lower urinary tract symptoms - Cellulitis of right lower limb - Cellulitis of right lower limb - Fibroblastic disorder, unspecified - Fibroblastic disorder, unspecified - Gastro-esophageal reflux disease without esophagitis - Gastro-esophageal reflux disease without esophagitis - Nicotine dependence, cigarettes, uncomplicated - Nicotine dependence, cigarettes, uncomplicated - Other specified postprocedural states - Other specified postprocedural states - Other stimulant abuse, uncomplicated - Other stimulant abuse, uncomplicated - Personal history of other diseases of the digestive system - Personal history of other diseases of the digestive system - Sepsis, unspecified organism 11/15/2023 13:51 [facility] [place] TYPE: Medical [...] place of occurrence of the external cause [email or web address]
[2024-07-11] MEDS ORDERED: AMOXICILLIN500 MG PO (20:48)
[2024-07-11] MEDS ORDERED: AMOXICILLIN 500 MG HOME.PACK PO ONE (21:00)
[2024-07-11 21:07] VITALS: BP 123/70
== END 2024-07-11 21:09 | disposition home or self-care (01) ==
LOC: ED 15:23
DX: H66.92 Otitis media, unspecified, left ear (principal); F17.200 Nicotine dependence, unspecified, uncomplicated
CPT/HCPCS: 99282

== ENCOUNTER 2024-10-07 12:06 | Emergency (ER) | payer OTHER ==
[~2024-10-07] VITALS: Ht 180.3 cm; Wt 78.3 kg
[~2024-10-07 12:06] MED LIST changes: +AMOXICILLIN500 MG PO
--- OUTSIDE RECORDS SUMMARY | 2024-10-07 12:14 | XMS ---
PreManage Notification: ANDREIA ALMANZAR Security Decal Cutter Events No recent Security Events currently on file CRITERIA MET - Group Notification CARE PROVIDERS -, [facility]ist: Supervisor [employer] [facility] [place] PHONE: [phone] MATHEUS GOINS [facility] Selam [place] PHONE: [phone] NOEMY PRIMARY Clinic/Center: Primary Care [facility] PHONE: [phone] JOCELINE CAR [facility] Current PHONE: [phone] Lorri has no Care Guidelines for this patient. [place] VISIT COUNT (12 MO.) 4 [facility] TOTAL 4 NOTE: Visits indicate total known visits. ED/UCC VISIT TRACKING (12 MO.) 10/07/2024 12:07 [facility] [place] TYPE: Emergency COMPLAINT: - FLU SYMPTOMS 07/11/2024 15:[address] [facility] [place] TYPE: Emergency COMPLAINT: - EAR PAIN DIAGNOSES: - Nicotine dependence, unspecified, uncomplicated - Otalgia, left ear - Otitis media, unspecified, left ear 02/15/2024 18:[address] [facility] [place] TYPE: Emergency COMPLAINT: - WEAKNESS 11/15/2023 09:[address] [facility] [place] TYPE: Emergency COMPLAINT: - FLU SYMPTOMS INPATIENT VISIT TRACKING (12 MO.) 02/15/2024 23:21 [...] place of occurrence of the external cause [email or web address]
[2024-10-07] MEDS ORDERED: ASPIRIN 81 MG CHEW PO ONE (12:15)
[2024-10-07 12:26] LABS: BASOPHILS 0.3 % (0.2-1.2); EOSINOPHILS 1.1 % (0.8-7.0); LYMPHOCYTES 12.2 % (21.8-53.1); MCH 31.5 PG (25.7-32.2); MCHC 33.6 g/dL (32.3-36.5); MCV 94.0 fL (79.0-92.2); MONOCYTES 5.2 % (5.3-12.2); NEUTROPHILS 80.8 % (34.0-67.9); RBC 4.85 M/uL (4.63-6.08)
[2024-10-07 12:45] LABS: ALT (SGPT) 46.0 U/L (14-59); AST (SGOT) 50.0 U/L (15-37); GLOMERULAR FILTRATION RATE,EST 99.0 mL/min (>60); PROTEIN, TOTAL 8.1 g/dL (6.4-8.2); UREA NITROGEN 14.0 mg/dL (7-18)
[2024-10-07] MEDS ORDERED: SODIUM CHLORIDE 0.9% 500 ML IV ONE (12:45)
[2024-10-07 13:16] LABS: CORONAVIRUS COVID-19 AG NEGATIVE (NEGATIVE)
[2024-10-07] MEDS ORDERED: ONDANSETRON ODT8 MG PO (13:27)
[2024-10-07] MEDS ORDERED: ONDANSETRON 4 MG TAB ODT SL ONE (13:30)
[2024-10-07] MEDS ORDERED: IBUPROFEN 600 MG TAB PO ONE (13:30)
[2024-10-07] MEDS ORDERED: ACETAMINOPHEN 500 MG TAB PO ONE (13:30)
[2024-10-07] MEDS ORDERED: ACETAMINOPHEN 500 MG TAB ONE (13:33)
[2024-10-07 13:44] VITALS: BP 140/70
--- NOTE | 2024-10-09 21:32 | EKG ---
[facility] [address] [place] [address] Signed Normal sinus rhythm Rightward axis Borderline ECG When compared with ECG of 15-FEB-2024 20:01, Criteria for Septal infarct are no longer present Nonspecific T wave abnormality, worse in Lateral leads Confirmed by Iván Alvarez MD () on 10/09/2024 9:32:33 PM Electronically Signed By: IVÁN ALVAREZ MD 10/09/242131 PATIENT NAME: ANDREIA ALMANZAR Electrocardiogram DATE OF : 63 PHYSICIAN: IVÁN ALVAREZ MD REPORT #: [id number] REPORT IS CONFIDENTIAL AND NOT TO BE RELEASED WITHOUT AUTHORIZATION
== END 2024-10-07 13:45 | disposition home or self-care (01) ==
LOC: ED 12:06
PROVIDERS: Emergency Medicine
DX: B34.9 Viral infection, unspecified (principal); F15.10 Other stimulant abuse, uncomplicated; K21.9 Gastro-esophageal reflux disease without esophagitis; F17.200 Nicotine dependence, unspecified, uncomplicated
CPT/HCPCS: 36415; 71045; 80053; 83735; 84484; 85025; 93005; 93010; 96374; 99284-25; A9270; J2405; J7040